=== PATIENT | male | born 1995 | race Caucasian/White ===

== ENCOUNTER 2017-03-19 03:14 | Emergency (ER) | payer BC ==
[2017-03-19] MEDS ORDERED: Ondansetron 4 MG/2 ML SDV IVPUSH ONE (03:46)
[2017-03-19] MEDS ORDERED: Alum Hydrox/Mag Hydrox/Simeth 30 ML, Lidocaine 2% 15 ML PO STA ×2 (03:47)
--- NOTE | 2017-03-19 03:53 | EDM.PDOC ---
ED HPI GENERAL MEDICAL PROBLEM - General Chief Complaint: Abdominal Pain Stated Complaint: STOMACH PAINS Time Seen by Provider: 03/19/17 03:24 Source of Information: Reports: Patient, Old Records, RN Notes Reviewed, Significant Other (Girlfriend) History Limitations: Reports: No Limitations - History of Present Illness INITIAL COMMENTS - FREE TEXT/NARRATIVE: The patient states that he developed epigastric abdominal pain around 14:00 yesterday afternoon. It has been on and off since, but has now been present for about 1.5 hours. He states that it is sharp in character, and is unclear if it radiates. He has nausea and had one episode of emesis last night. No constipation, diarrhea, or urinary symptoms. The patient has not identified any modifiers. He has not tried any home remedies. He denies prior similar symptoms. The patient reports that he has a history of GERD, for which he only takes Tums on an as-needed basis. The patient does not have a PCP. mid gastric Pain Score (Numeric/FACES): 8 - Related Data Allergies Allergy/AdvReac Type Severity Reaction Status Date / Time No Known Allergies Allergy Verified 03/19/17 03:27 Home Meds: Home Meds diphenhydrAMINE HCl [Benadryl Allergy] 25 mg PO ASDIRECTED PRN 03/19/17 [History ] Past Medical History HEENT History: Reports: Allergic Rhinitis Gastrointestinal History: Reports: GERD, Hemorrhoids Genitourinary History: Reports: Renal Calculus Musculoskeletal History: Reports: Fracture (left hand) Psychiatric History: Reports: Addiction (benzodiazepines, opioids), Anxiety, Panic Attack, PTSD Endocrine/Metabolic History: Reports: Obesity/BMI 30+ - Past Surgical History HEENT Surgical History: Reports: Oral Surgery ([place] teeth extraction) Male Surgical History: Reports: Lithotripsy ([facility]), Nephrectomy (left, 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), Other (See Below) (right kidney reconstruction 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) Musculoskeletal Surgical History: Reports: ORIF (left 3rd finger) Social & Family History - Family History Family Medical History: Noncontributory Psychiatric: Reports: Anxiety - Tobacco Use Smoking Status *Q: Never Smoker Second Hand Smoke Exposure: No - Caffeine Use Caffeine Use: Reports: Soda - Alcohol Use Alcohol Use History: No - Recreational Drug Use Recreational Drug Use: Yes Drug Use in Last 12 Months: Yes Recreational Drug Type: Reports: Benzodiazepines, Marijuana/Hashish, Oxycodone Recreational Drug Use Frequency: Daily Recreational Drug Last Use: August 2016 - Living Situation & Occupation Living situation: Reports: Single, with Significant Other (Girlfriend) 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[employer]) ED ROS GENERAL - Review of Systems Review Of Systems: See Below Constitutional: Reports: No Symptoms HEENT: Reports: No Symptoms Respiratory: Reports: No Symptoms Cardiovascular: Reports: No Symptoms Endocrine: Reports: No Symptoms GI/Abdominal: Reports: No Symptoms : Reports: No Symptoms Musculoskeletal: Reports: No Symptoms Skin: Reports: No Symptoms Neurological: Reports: No Symptoms Psychiatric: Reports: No Symptoms Hematologic/Lymphatic: Reports: No Symptoms Immunologic: Reports: No Symptoms ED EXAM, GI/ABD - Physical Exam Exam: See Below Exam Limited By: No Limitations General Appearance: Alert, WD/WN, Anxious (tremulous) Eyes: Bilateral: Normal Appearance, EOMI Ears: Normal External Exam, Hearing Grossly Normal Nose: Normal Inspection, No Blood Throat/Mouth: Normal Inspection, Normal Lips, Normal Voice, No Airway Compromise Head: Atraumatic, Normocephalic Neck: Normal Inspection, Full Range of Motion Respiratory/Chest: No Respiratory Distress, Lungs Clear, Normal Breath Sounds, No Accessory Muscle Use Cardiovascular: Normal Peripheral Pulses, Regular Rate, Rhythm, No Edema, No Gallop, No JVD, No Murmur, No Rub GI/Abdominal Exam: Normal Bowel Sounds, Soft, Non-Tender (including epigastric region), No Organomegaly, No Distention, No Abnormal Bruit, No Mass, Other ( Obese) (Male) Exam: Deferred Back Exam: Normal Inspection, Full Range of Motion. No: CVA Tenderness (L), CVA Tenderness (R) Extremities: Normal Inspection, Normal Range of Motion, No Pedal Edema, Normal Capillary Refill Neurological: Alert, Oriented, Normal Cognition, No Motor/Sensory Deficits Psychiatric: Normal Affect, Anxious Skin Exam: Warm, Dry, Intact, Normal Color, No Rash Course - Vital Signs Last Recorded V/S: Last Vital Signs Temp 37.1 C 03/19/17 03:20 Pulse 104 H 03/19/17 03:20 Resp 18 03/19/17 03:20 BP 154/84 H 03/19/17 03:20 Pulse Ox 98 03/19/17 03:20 - Orders/Labs/Meds Orders: Active Orders 24 hr Category Date Time Status Famotidine [Pepcid] Med 03/19/17 05:08 Once 20 mg PO ONETIME ONE Sodium Chloride 0.9% [Normal Saline] 1,000 ml Med 03/19/17 04:00 Active IV ASDIRECTED Medication Orders Sodium Chloride (Normal Saline) 1,000 mls @ 150 mls/hr IV ASDIRECTED MICHAEL Last Admin: 03/19/17 04:09 Dose: 150 mls/hr Labs: Laboratory Tests 03/19/17 03/19/17 03/19/17 Range/Units 04:05 04:05 04:05 WBC 11.99 H (4.23-9.07) K/mm3 RBC 5.43 (4.63-6.08) M/mm3 Hgb 14.7 (13.7-17.5) gm/L Hct 43.8 (40.1-51.0) % MCV 80.7 (79.0-92.2) fl MCH 27.1 (25.7-32.2) pg MCHC 33.6 (32.2-35.5) g/dl RDW Std Deviation 39.9 (35.1-43.9) fL Plt Count 212 (163-337) K/mm3 MPV 11.3 (9.4-12.3) fl Neutrophils % (Manual) 51 (40-60) % Band Neutrophils % 1 (0-10) % Lymphocytes % (Manual) 27 (20-40) % Atypical Lymphs % 0 % Monocytes % (Manual) 4 (2-10) % Eosinophils % (Manual) 16 H (0.8-7.0) % Basophils % (Manual) 1 (0.2-1.2) Platelet Estimate Adequate Plt Morphology Comment Normal Anisocytosis 1+ sligh RBC Morph Comment Not Reportable Sodium 140 (136-145) mEq/L Potassium 3.4 L (3.5-5.1) mEq/L Chloride 102 (98-107) mEq/L Carbon Dioxide 30 (21-32) mEq/L Anion Gap 11.4 (5-15) BUN 11 (7-18) mg/dL Creatinine 1.3 (0.7-1.3) mg/dL Est Cr Clr Drug Dosing 93.59 mL/min Estimated GFR (MDRD) > 60 (>60) mL/min BUN/Creatinine Ratio 8.5 L (14-18) Glucose 131 H (74-106) mg/dL Calcium 9.7 (8.5-10.1) mg/dL Total Bilirubin 0.3 (0.2-1.0) mg/dL AST 37 (15-37) U/L ALT 42 (16-63) U/L Alkaline Phosphatase 85 (46-116) U/L Total Protein 8.1 (6.4-8.2) g/dl Albumin 4.1 (3.4-5.0) g/dl Globulin 4.0 gm/dL Albumin/Globulin Ratio 1.0 (1-2) Lipase 66 L (73-393) U/L Urine Color Yellow (Yellow) Urine Appearance Clear (Clear) Urine pH 7.0 (5.0-8.0) Ur Specific Arthur 1.025 (1.005-1.030) Urine Protein 2+ H (Negative) Urine Glucose (UA) Negative (Negative) Urine Ketones Negative (Negative) Urine Occult Blood Negative (Negative) Urine Nitrite Negative (Negative) Urine Bilirubin Negative (Negative) Urine Urobilinogen 0.2 (0.2-1.0) Ur Leukocyte Esterase Negative (Negative) Urine RBC 0-5 (0-5) /hpf Urine WBC 0-5 (0-5) /hpf Ur Epithelial Cells 0-5 (0-5) /hpf Amorphous Sediment Few H (NOT SEEN) /hpf Urine Bacteria Rare (FEW) /hpf Urine Mucus Not seen (FEW) /hpf Urine Opiates Screen (NEGATIVE) Ur Buprenorphine Scrn (NEGATIVE) Ur Oxycodone Screen (NEGATIVE) Urine Methadone Screen (NEGATIVE) Ur Propoxyphene Screen (NEGATIVE) Ur Barbiturates Screen (NEGATIVE) Ur Tricyclics Screen (NEGATIVE) Ur Phencyclidine Scrn (NEGATIVE) Ur Amphetamine Screen (NEGATIVE) U Methamphetamines Scrn (NEGATIVE) U Benzodiazepines Scrn (NEGATIVE) U Cocaine Metab Screen (NEGATIVE) U Marijuana (THC) Screen (NEGATIVE) 03/19/17 Range/Units 04:05 WBC (4.23-9.07) K/mm3 RBC (4.63-6.08) M/mm3 Hgb (13.7-17.5) gm/L Hct (40.1-51.0) % MCV (79.0-92.2) fl MCH (25.7-32.2) pg MCHC (32.2-35.5) g/dl RDW Std Deviation (35.1-43.9) fL Plt Count (163-337) K/mm3 MPV (9.4-12.3) fl Neutrophils % (Manual) (40-60) % Band Neutrophils % (0-10) % Lymphocytes % (Manual) (20-40) % Atypical Lymphs % % Monocytes % (Manual) (2-10) % Eosinophils % (Manual) (0.8-7.0) % Basophils % (Manual) (0.2-1.2) Platelet Estimate Plt Morphology Comment Anisocytosis RBC Morph Comment Sodium (136-145) mEq/L Potassium (3.5-5.1) mEq/L Chloride (98-107) mEq/L Carbon Dioxide (21-32) mEq/L Anion Gap (5-15) BUN (7-18) mg/dL Creatinine (0.7-1.3) mg/dL Est Cr Clr Drug Dosing mL/min Estimated GFR (MDRD) (>60) mL/min BUN/Creatinine Ratio (14-18) Glucose (74-106) mg/dL Calcium (8.5-10.1) mg/dL Total Bilirubin (0.2-1.0) mg/dL AST (15-37) U/L ALT (16-63) U/L Alkaline Phosphatase (46-116) U/L Total Protein (6.4-8.2) g/dl Albumin (3.4-5.0) g/dl Globulin gm/dL Albumin/Globulin Ratio (1-2) Lipase (73-393) U/L Urine Color (Yellow) Urine Appearance (Clear) Urine pH (5.0-8.0) Ur Specific Arthur (1.005-1.030) Urine Protein (Negative) Urine Glucose (UA) (Negative) Urine Ketones (Negative) Urine Occult Blood (Negative) Urine Nitrite (Negative) Urine Bilirubin (Negative) Urine Urobilinogen (0.2-1.0) Ur Leukocyte Esterase (Negative) Urine RBC (0-5) /hpf Urine WBC (0-5) /hpf Ur Epithelial Cells (0-5) /hpf Amorphous Sediment (NOT SEEN) /hpf Urine Bacteria (FEW) /hpf Urine Mucus (FEW) /hpf Urine Opiates Screen Negative (NEGATIVE) Ur Buprenorphine Scrn Negative (NEGATIVE) Ur Oxycodone Screen Negative (NEGATIVE) Urine Methadone Screen Negative (NEGATIVE) Ur Propoxyphene Screen Negative (NEGATIVE) Ur Barbiturates Screen Negative (NEGATIVE) Ur Tricyclics Screen Negative (NEGATIVE) Ur Phencyclidine Scrn Negative (NEGATIVE) Ur Amphetamine Screen Negative (NEGATIVE) U Methamphetamines Scrn Negative (NEGATIVE) U Benzodiazepines Scrn Negative (NEGATIVE) U Cocaine Metab Screen Negative (NEGATIVE) U Marijuana (THC) Screen Negative (NEGATIVE) Meds: Medications Generic Name Dose Route Start Last Admin Trade Name Freq PRN Reason Stop Dose Admin Sodium Chloride 1,000 mls @ 150 mls/hr 03/19/17 04:00 03/19/17 04:09 Normal Saline IV 150 mls/hr ASDIRECTED MICHAEL Administration Discontinued Medications Generic Name Dose Route Start Last Admin Trade Name Freq PRN Reason Stop Dose Admin Al Hydroxide/Mg Hydroxide 30 0 ml 03/19/17 03:47 03/19/17 04:09 ml/ Lidocaine HCl 15 ml PO 03/19/17 03:48 45 ml ONETIME STA Administration Ondansetron HCl 4 mg 03/19/17 03:46 03/19/17 04:09 Zofran IVPUSH 03/19/17 03:47 4 mg ONETIME ONE Administration - Re-Assessments/Exams Free Text/Narrative Re-Assessment/Exam: 03/19/17 03:57 While the patient is complaining of epigastric abdominal pain, he has a benign physical exam, with normal active bowel sounds and no tenderness to palpation of the epigastric region. Based on this, I have not ordered a CT scan of the abdomen and pelvis, given the extremely low likelihood of meaningful findings and the relative risk of radiation. If the patient's lipase returns significantly elevated, however, I would reconsider ordering an imaging study. I have ordered a GI cocktail, to see if that improves his symptoms. The patient has a well-documented significant history of both benzodiazepine and opioid abuse, which he was reluctant to divulge, even though I have personally met this patient on 2 separate occasions. I am not going to order any controlled substances unless I find an objective reason to do so. 03/19/17 05:09 Test results discussed with the patient and his girlfriend. The patient reports complete relief following the GI cocktail. This indicates that the patient's pain is due either to gastritis, GERD, esophagitis, or some combination. I have ordered 20 mg famotidine, and am recommending that he begin taking this once or twice a day. Departure - Departure Time of Disposition: 05:11 Disposition: Home, Self-Care 01 Condition: Good Clinical Impression: GERD (gastroesophageal reflux disease) - Discharge Information Referrals: PCP,None [Primary Care Provider] - Forms: ED Department Discharge Additional Instructions: You were seen in the emergency room for upper abdominal pain, with nausea and vomiting. Workup in the ER included blood work and urinalyses. You received significant improvement after drinking a GI cocktail, indicating that your pain is coming from it to your stomach or your esophagus. You have been started on the antacid medicine Pepcid. This medicine is available [id number], and generic famotidine is just as good as brand- name Pepcid. We recommend you take one tablet either once or twice a day. If your symptoms persist despite taking this medicine, we recommend you follow- up with the Surgeon Dr. Santacruz for possible EGD. If any other problems, please do not hesitate to return to the ER. - My Orders Last 24 Hours: My Active Orders 03/19/17 04:00 Sodium Chloride 0.9% [Normal Saline] 1,000 ml IV ASDIRECTED 03/19/17 05:08 Famotidine [Pepcid] 20 mg PO ONETIME ONE - Assessment/Plan Last 24 Hours: My Active Orders 03/19/17 04:00 Sodium Chloride 0.9% [Normal Saline] 1,000 ml IV ASDIRECTED 03/19/17 05:08 Famotidine [Pepcid] 20 mg PO ONETIME ONE
[2017-03-19] MEDS ORDERED: Sodium Chloride 0.9% 1,000 ML IV SCH (04:00)
[2017-03-19] MEDS ORDERED: Famotidine 20 MG Tab PO ONE (05:08)
[2017-03-19 05:33] VITALS: BP 140/74
== END 2017-03-19 05:20 | disposition home or self-care (01) ==
LOC: JD.ED 03:14
DX: K21.9 Gastro-esophageal reflux disease without esophagitis (principal); Z87.442 Personal history of urinary calculi
CPT/HCPCS: 36415; 80053; 80306; 81001; 83690; 85025; 96361; 96374; 99284; A9270; J2405; J7040; 99283

== ENCOUNTER 2017-03-21 04:08 | Emergency (ER) | payer BC ==
[2017-03-21 04:19] VITALS: BP 132/80
[2017-03-21] MEDS ORDERED: Metoclopramide 10 MG/2 ML SDV IVPUSH ONE (04:31)
[2017-03-21] MEDS ORDERED: HYDROmorphone 1 MG/ML Syringe IVPUSH ONE (04:31)
--- NOTE | 2017-03-21 04:31 | EDM.PDOC ---
ED HPI GENERAL MEDICAL PROBLEM - General Chief Complaint: Abdominal Pain Stated Complaint: ABDOMINAL PAIN Time Seen by Provider: 03/21/17 04:23 Source of Information: Reports: Patient History Limitations: Reports: No Limitations - History of Present Illness INITIAL COMMENTS - FREE TEXT/NARRATIVE: 21-year-old male presents to the ED with diffuse abdominal pain worse in the right lower quadrant than anywhere else. He reports he started vomiting of 3 days ago and then it seemed to quit. He had upper GI discomfort and was seen through the ED 906. Improved with an upper GI cocktail. States since that time his bowels been functioning well yesterday he can eat okay. No fever or chills. Has not been able to sleep all night due to the intensity of the pain. There appears to be a strong colicky component to the pain. 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 He has no history of renal stones. At present he cannot stand erect. Not aware of any fever or chills. Is anorexic at this time. He's been taking Motrin at home with no relief of the pain. Has not seen any blood in his urine. Stools have been normal. Onset: Sudden Onset Date: 03/20/17 Duration: Hour(s): (Pain started yesterday afternoon and is progressively worsened.) Location: Reports: Abdomen (Right lower quadrant.) Quality: Reports: Ache, Sharp, Stabbing, Other (Constant pain with a colicky component) Severity: Severe (Currently rates his pain as 8 out of 10.) Improves with: Reports: Rest Worsens with: Reports: Movement (Especially standing erect.) Context: Denies: Activity, Exercise, Lifting, Sick Contact, Trauma, Other Associated Symptoms: Reports: Loss of Appetite, Nausea/Vomiting. 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, Other (see below) Right Lower Abdominal Pain Score (Numeric/FACES): 8 - Related Data Allergies Allergy/AdvReac Type Severity Reaction Status Date / Time No Known Allergies Allergy Verified 03/21/17 04:19 Home Meds: Home Meds diphenhydrAMINE HCl [Benadryl Allergy] 25 mg PO ASDIRECTED PRN 03/19/17 [History ] Past Medical History HEENT History: Reports: Allergic Rhinitis Gastrointestinal History: Reports: GERD, Hemorrhoids Other Gastrointestinal History: hx constipation and abdominal pain Genitourinary History: Reports: Renal Calculus Other Genitourinary History: 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 Musculoskeletal History: Reports: Fracture (left hand) Other Musculoskeletal History: left hand Neurological History: Reports: Migraines Psychiatric History: Reports: Addiction (benzodiazepines, opioids), Anxiety, Panic Attack, PTSD Endocrine/Metabolic History: Reports: Obesity/BMI 30+ - Past Surgical History HEENT Surgical History: Reports: Oral Surgery ([place] teeth extraction) Male Surgical History: Reports: Lithotripsy ([facility]), Nephrectomy (left, 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), Other (See Below) (right kidney reconstruction 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) Musculoskeletal Surgical History: Reports: ORIF (left 3rd finger) Social & Family History - Family History Family Medical History: Noncontributory Psychiatric: Reports: Anxiety - Tobacco Use Smoking Status *Q: Never Smoker Second Hand Smoke Exposure: No - Caffeine Use Caffeine Use: Reports: Soda - Recreational Drug Use Recreational Drug Use: Yes Drug Use in Last 12 Months: Yes Recreational Drug Type: Reports: Benzodiazepines, Marijuana/Hashish, Oxycodone Other Recreational Drug Type: denies any use of street drugs Recreational Drug Use Frequency: Daily Recreational Drug Last Use: August 2016 - Living Situation & Occupation Living situation: Reports: Single, with Significant Other (Girlfriend) 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 Denies: Fever HEENT: Reports: No Symptoms Respiratory: Reports: No Symptoms Cardiovascular: Reports: No Symptoms Endocrine: Reports: No Symptoms GI/Abdominal: Reports: Abdominal Pain, Anorexia (See history of present illness) , Nausea. Denies: Constipation, Diarrhea, Distension, Flatus, Hematemesis, Hematochezia, Stool Incontinence, Vomiting, Other : Reports: No Symptoms Musculoskeletal: Reports: No Symptoms Skin: Reports: No Symptoms Neurological: Reports: No Symptoms Psychiatric: Reports: No Symptoms Hematologic/Lymphatic: Reports: No Symptoms Immunologic: Reports: No Symptoms ED EXAM, GI/ABD - Physical Exam Exam: See Below Exam Limited By: No Limitations General Appearance: Alert, Moderate Distress (Appears to be in significant pain at this time.) Eyes: Bilateral: Normal Appearance (No jaundice.) Throat/Mouth: Normal Inspection, Normal Lips, Normal Oropharynx Head: Atraumatic, Normocephalic Neck: Normal Inspection, Supple, Non-Tender, Full Range of Motion. No: Lymphadenopathy (L), Lymphadenopathy (R) Respiratory/Chest: No Respiratory Distress, Lungs Clear, Normal Breath Sounds ( Mild tachypnea at rest. Splinting respirations.), No Accessory Muscle Use, Respiratory Distress GI/Abdominal Exam: Guarding, Rebound, Tender (Right lower quadrant over McBurney 's point and a little bit lower.), Abnormal Bowel Sounds (Decreased bowel sounds.). No: Rigid (Right hemiabdomen particularly right lower quadrant.) (Male) Exam: No Hernia Back Exam: Normal Inspection, Full Range of Motion, CVA Tenderness (R). No: CVA Tenderness (L) Extremities: Normal Inspection, Normal Range of Motion, Non-Tender Neurological: Alert, Oriented, CN II-XII Intact, Normal Cognition, Normal Gait Psychiatric: Normal Affect, Anxious, Other Skin Exam: Warm, Dry (In a lot of pain.), Intact, Normal Color, No Rash Course - Vital Signs Last Recorded V/S: Last Vital Signs Temp 36.6 C 03/21/17 04:16 Pulse 89 03/21/17 04:16 Resp 16 03/21/17 04:16 BP 132/80 03/21/17 04:16 Pulse Ox 100 03/21/17 04:16 - Orders/Labs/Meds Labs: Laboratory Tests 03/21/17 03/21/17 03/21/17 Range/Units 04:40 04:40 06:25 WBC 12.85 H (4.23-9.07) K/mm3 RBC 5.37 (4.63-6.08) M/mm3 Hgb 14.6 (13.7-17.5) gm/L Hct 43.5 (40.1-51.0) % MCV 81.0 (79.0-92.2) fl MCH 27.2 (25.7-32.2) pg MCHC 33.6 (32.2-35.5) g/dl RDW Std Deviation 40.3 (35.1-43.9) fL Plt Count 233 (163-337) K/mm3 MPV 11.4 (9.4-12.3) fl Neutrophils % (Manual) 48 (40-60) % Band Neutrophils % 1 (0-10) % Lymphocytes % (Manual) 30 (20-40) % Atypical Lymphs % 0 % Monocytes % (Manual) 7 (2-10) % Eosinophils % (Manual) 14 H (0.8-7.0) % Basophils % (Manual) 0 L (0.2-1.2) Platelet Estimate Adequate RBC Morph Comment Normal Sodium 140 (136-145) mEq/L Potassium 3.5 (3.5-5.1) mEq/L Chloride 104 (98-107) mEq/L Carbon Dioxide 27 (21-32) mEq/L Anion Gap 12.5 (5-15) BUN 8 (7-18) mg/dL Creatinine 1.3 (0.7-1.3) mg/dL Est Cr Clr Drug Dosing TNP Estimated GFR (MDRD) > 60 (>60) mL/min BUN/Creatinine Ratio 6.2 L (14-18) Glucose 113 H (74-106) mg/dL Calcium 9.1 (8.5-10.1) mg/dL Total Bilirubin 0.3 (0.2-1.0) mg/dL AST 31 (15-37) U/L ALT 37 (16-63) U/L Alkaline Phosphatase 85 (46-116) U/L C-Reactive Protein < 0.2 (<1.0) mg/dL Total Protein 7.8 (6.4-8.2) g/dl Albumin 4.1 (3.4-5.0) g/dl Globulin 3.7 gm/dL Albumin/Globulin Ratio 1.1 (1-2) Lipase 66 L (73-393) U/L Urine Color Yellow (Yellow) Urine Appearance Clear (Clear) Urine pH 6.0 (5.0-8.0) Ur Specific [place] 1.025 (1.005-1.030) Urine Protein 1+ H (Negative) Urine Glucose (UA) Negative (Negative) Urine Ketones Negative (Negative) Urine Occult Blood Negative (Negative) Urine Nitrite Negative (Negative) Urine Bilirubin Negative (Negative) Urine Urobilinogen 0.2 (0.2-1.0) Ur Leukocyte Esterase Negative (Negative) Urine RBC 0-5 (0-5) /hpf Urine WBC 0-5 (0-5) /hpf Ur Epithelial Cells Not seen (0-5) /hpf Calcium Oxalate Crystal Few H (NONE) Urine Bacteria Not seen (FEW) /hpf Urine Mucus Few (FEW) /hpf Meds: Medications Discontinued Medications Generic Name Dose Route Start Last Admin Trade Name Freq PRN Reason Stop Dose Admin Diatrizoate Meglum/Diatrizoate Sod 90 ml 03/21/17 06:23 03/21/17 06:34 Gastrografin 37% PO 03/21/17 06:24 90 ml ONETIME ONE Administration Dicyclomine HCl 20 mg 03/21/17 06:49 03/21/17 06:55 Bentyl PO 03/21/17 06:50 20 mg ONETIME ONE Administration Hydromorphone HCl 1 mg 03/21/17 04:31 03/21/17 04:55 Dilaudid IVPUSH 03/21/17 04:32 1 mg ONETIME ONE Administration Hydromorphone HCl 0.5 mg 03/21/17 06:49 03/21/17 06:55 Dilaudid IVPUSH 03/21/17 06:50 0.5 mg ONETIME ONE Administration Sodium Chloride 1,000 mls @ 500 mls/hr 03/21/17 04:45 03/21/17 04:52 Normal Saline IV 500 mls/hr ASDIRECTED MICHAEL Administration Iopamidol 125 ml 03/21/17 06:23 03/21/17 06:35 Isovue-300 (61%) IVPUSH 03/21/17 06:24 125 ml ONETIME ONE Administration Ketorolac Tromethamine 30 mg 03/21/17 07:00 03/21/17 06:59 Toradol IVPUSH 30 mg ONETIME MICHAEL Administration Metoclopramide HCl 10 mg 03/21/17 04:31 03/21/17 04:54 Reglan IVPUSH 03/21/17 04:32 10 mg ONETIME ONE Administration Sodium Chloride 10 ml 03/21/17 06:23 03/21/17 06:35 Saline Flush FLUSH 03/21/17 06:24 10 ml ONETIME ONE Administration - Radiology Interpretation Free Text/Narrative:: 21-year-old male presents to the ED with a history of spontaneous nausea and vomiting 3 days ago upper GI discomfort and was seen through the ED on the seventh. He was able to eat up until yesterday when he developed increasing lower abdominal pain and particularly right lower quadrant abdominal pain over the last several hours. Walk and he cannot stand erect. Pain is strongly colicky in nature. 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 History of renal colic that he's aware of. Examination reveals few and far between bowel sounds. Slightly tender to percussion right lower quadrant and guarding right lower quadrant over McBurney' s point. No hernias identified. He is afebrile at this time. Plan IV normal saline at 500 mils per hour. Given Dilaudid 1 mg IV with Reglan 10 mg IV for pain and nausea relief. Routine labs including a serum lipase and CRP. Urinalysis as well. KUB will be done first with plan to follow-up with CT scan of the abdomen and pelvis with oral and IV contrast providing his one kidney is functioning well. - Re-Assessments/Exams Free Text/Narrative Re-Assessment/Exam: 03/21/17 05:14 patient reports pain is much more manageable at this time after Dilaudid and Reglan IV. KUB done reveals increased stool in the lower right hemicolon with a few dilated loops of small bowel in the right lower quadrant compatible with an ileus. There is increased stool throughout the left hemicolon down to the rectum. No bowel obstruction is evident. Initial white count is 12.85 differential is pending. Hemoglobin is 14.6 with a hematocrit .HCT. is 43.5 ,platelets 233,000. Plan Will proceed with CT of the abdomen and pelvis with oral and IV contrast. 03/21/17 05:58 labs reveal differential of white count to be 48% neutrophils and 1% bands. She shows a sodium of 140 potassium 3.5 chloride 104 bicarbonate 27. Anion gap is 12.5 glucose is 113 lipase is 66 CRP is less than 0.2. These findings are against acute appendicitis. He will be 4 CT of the abdomen and pelvis shortly. 03/21/17 06:50 CT of the abdomen and pelvis has been completed. A large amount of contrast remains within the stomach. Contrast does percolate through the small bowel which contains a large amount of fluid particularly down in the pelvis. Heart no true signs of air-fluid levels or obstruction. There is increased stool throughout the right hemicolon and transverse colon. The appendix is not well visualized but there is no signs of periappendiceal inflammation. Left kidney is absent right kidney is slightly enlarged compared to normal with a slightly dilated renal pelvis. However there is no obstruction in the right ureter. It appears that most of his abdominal pain is secondary to increased stool throughout the right hemicolon and he is going to develop some diarrhea within the next few hours. Pain is coming back and he is rocking back and forth because of the cramping. Will repeat Dilaudid 0.5 mg IV with Toradol 30 mg IV and given Bentyl 20 mg orally. I will not add any other medications to system to cleanse the bowel is I think the contrast will be enough to do so. He will return if not markedly improved after bowel cleanse from the oral contrast. Departure - Departure Time of Disposition: 06:52 Disposition: Home, Self-Care 01 Condition: Fair Clinical Impression: Constipation by delayed colonic transit Abdominal pain Qualifiers: Abdominal location: right lower quadrant Qualified Code(s): R10.31 - Right lower quadrant pain - Discharge Information Instructions: Constipation, Adult, Abdominal Pain, Adult, [id number] Referrals: PCP,None [Primary Care Provider] - Forms: ED Department Discharge Additional Instructions: Evaluation the emergency room tonight in regards to persistent abdominal cramping pain that kept her awake all night long. This started 3 days ago with spontaneous nausea and vomiting. No diarrhea did occur at that time. Appetite remains good up until yesterday. Overnight developed increased abdominal cramping pain without any diarrhea. Pain was more localized to the right lower quadrant of the abdomen. Also history of left kidney being resected when you were a youngster with reanastomosis of the ureters to the right kidney due to congenital abnormalities. Lab work revealed a moderately elevated white blood cell count at 12.9. This appears to be secondary to pain response. The normal cells that fight of bacterial infection were normal. Also markers for infection from bacteria infection were normal as well. CT scan of the abdomen is performed to rule out appendicitis as well as any stones within the right kidney system as this would be very important due to only having one kidney. The good news is no stones are identified within the right kidney or the drainage system. Appendix is within normal limits. No sign of appendicitis evident. Increased stool without them in within the right hemicolon and transverse colon appear to be the culprit in terms of causing a plug. Small bowel is 21 feet long trying to push the plug to the opposite side thus giving you the abdominal pain. The oral contrast that you drink in preparation for the CT will work its way through your bowel and you will have at least 2 bowel movements within the next 4-6 hours. This should provide relief of abdominal pain once the bowel is been cleansed of the cuspid stool. If not then I would suggest purchasing Citroma or magnesium citrate and drink 8 ounces by mouth with 4 ounces of juice of choice once. This usually works up in 1-2 hours to provide bowel cleanse.
[2017-03-21] MEDS ORDERED: Sodium Chloride 0.9% 1,000 ML IV SCH (04:45)
[2017-03-21] MEDS ORDERED: Sodium Chloride 0.9% 10 ML Syringe FLUSH ONE (06:23)
[2017-03-21] MEDS ORDERED: Iopamidol 612 MG/ML 150 ML Bottle IVPUSH ONE (06:23)
[2017-03-21] MEDS ORDERED: Diatrizoate Meglumine/Diatrizoate Sodium 37% 120 ML Bottle PO ONE (06:23)
[2017-03-21] MEDS ORDERED: HYDROmorphone 0.5 MG/0.5 ML Syringe IVPUSH ONE (06:49)
[2017-03-21] MEDS ORDERED: Dicyclomine 10 MG Cap PO ONE (06:49)
[2017-03-21] MEDS ORDERED: Ketorolac 30 MG/ML SDV IVPUSH SCH (07:00)
--- NOTE | 2017-03-23 08:58 | CT ---
CT abdomen and pelvis Technique: Multiple axial sections were obtained from above the dome of the diaphragm inferiorly through the pubic symphysis. Intravenous and oral contrast was utilized. Delayed images were obtained through the bladder. Comparison: Previous noncontrast CT abdomen and pelvis exam of 08/07/16. Findings: Visualized lung bases show nothing acute. Liver shows no focal parenchymal abnormality. Spleen appears within normal limits. Adrenal glands show no nodule. Absent left kidney is again identified. Right kidney shows contrast enhancement. Slightly prominent collecting system and renal pelvis are seen which is felt to be incidental as no ureteral dilatation or ureteral calculus is seen. Pancreas appears within normal limits. Aorta shows no aneurysmal dilatation. No retroperitoneal adenopathy or mesenteric abnormalities are seen. No findings of appendicitis. Small amount of free fluid is seen within the pelvis believed to be incidental. No pelvic mass or adenopathy is noted. Slight increased stool within the colon is seen. Delayed images were obtained which show contrast excretion into the distal right ureter and bladder. Bone window settings were reviewed which show disc bulge or herniation at T11-T12 as well as diffuse posterior disc bulge or protrusion at L4-L5. Impression: 1. Absent left kidney. 2. Other incidental findings. Nothing acute is appreciated on CT study of the abdomen and pelvis. Diagnostic code #2 I agree with preliminary report issued by [employer] ([facility] preliminary report dictated on 03/21/17, 8:16 AM Central Time)
--- NOTE | 2017-03-23 08:58 | CR ---
Abdomen: Supine view of the abdomen was obtained. Bowel gas pattern appears within normal limits. No abnormal calcifications or discrete soft tissue abnormality is seen. Bony structures are unremarkable. Impression: 1. Unremarkable supine abdominal x-ray. Diagnostic code #1
== END 2017-03-21 07:19 | disposition home or self-care (01) ==
LOC: JD.ED 04:08
DX: K59.01 Slow transit constipation (principal); K21.9 Gastro-esophageal reflux disease without esophagitis; E66.9 Obesity, unspecified; Z87.442 Personal history of urinary calculi; Z98.890 Other specified postprocedural states
CPT/HCPCS: 36415; 74000; 74177; 80053; 81001; 83690; 85025; 86140; 96361; 96374; 96375; 96376; 99285; A9270; J1170; J1885; J2765; J7040; J7050; Q9963; Q9967; 99284

== ENCOUNTER 2018-04-18 02:18 | Emergency (ER) | payer BC ==
--- NOTE | 2018-04-18 02:41 | EDM.PDOC ---
ED HPI GENERAL MEDICAL PROBLEM - General Chief Complaint: Neurological Problem Stated Complaint: seizure at home Time Seen by Provider: 04/18/18 02:41 - History of Present Illness INITIAL COMMENTS - FREE TEXT/NARRATIVE: 22-year-old male presents emergency room after possibly having a seizure. According to the patient's significant other who states the patient was just sitting there that his head turned to the side his eyes rolled back and then he developed this generalized shaking activity that lasted 20-30 seconds. After this he started mumbling about football and rain and then woke up. He's been using this sleep aid that he gets online but had not yet taken it this evening. The name of this is Etizalam. This is a very weak benzodiazepine. He has been taking this sleep aid for a couple of months. - Related Data Allergies Allergy/AdvReac Type Severity Reaction Status Date / Time No Known Allergies Allergy Verified 04/18/18 02:26 Home Meds: Home Meds Etizolam. 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 Musculoskeletal History: Reports: Fracture Other Musculoskeletal History: left hand Neurological History: Reports: Migraines Psychiatric History: Reports: Addiction, Anxiety, Panic Attack, PTSD Endocrine/Metabolic History: Reports: Obesity/BMI 30+ - Past Surgical History HEENT Surgical History: Reports: Oral Surgery Male Surgical History: Reports: Lithotripsy (ESWL), Nephrectomy, Other (See Below) Musculoskeletal Surgical History: Reports: ORIF Social & Family History - Family History Family Medical History: Noncontributory Psychiatric: Reports: Anxiety - Tobacco Use Smoking Status *Q: Never Smoker - Caffeine Use Caffeine Use: Reports: Energy Drinks - Recreational Drug Use Recreational Drug Use: No - Living Situation & Occupation Living situation: Reports: Single, with Significant Other (Girlfriend) 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[employer]) ED ROS GENERAL - Review of Systems Review Of Systems: See Below Constitutional: Reports: No Symptoms HEENT: Reports: No Symptoms Respiratory: Reports: No Symptoms Cardiovascular: Reports: No Symptoms Endocrine: Reports: No Symptoms GI/Abdominal: Reports: No Symptoms : Reports: No Symptoms Musculoskeletal: Reports: No Symptoms Skin: Reports: No Symptoms Neurological: Reports: No Symptoms Psychiatric: Reports: No Symptoms Hematologic/Lymphatic: Reports: No Symptoms Immunologic: Reports: No Symptoms - Physical Exam Exam: See Below Exam Limited By: No Limitations General Appearance: Alert, No Apparent Distress Eye Exam: Bilateral Eye: EOMI, PERRL Ears: Normal External Exam, Normal Canal, Hearing Grossly Normal, Normal TMs Nose: Normal Inspection Throat/Mouth: Normal Inspection, Normal Lips, Normal Teeth, Normal Gums, Normal Oropharynx, Normal Voice, No Airway Compromise Head Exam: Atraumatic, Normocephalic Neck: Normal Inspection, Supple, Non-Tender, Full Range of Motion. No: Lymphadenopathy (L), Lymphadenopathy (R) Respiratory/Chest: No Respiratory Distress, Lungs Clear, Normal Breath Sounds, No Accessory Muscle Use, Chest Non-Tender Cardiovascular: Normal Peripheral Pulses, Regular Rate, Rhythm, No Edema, No Gallop, No JVD, No Murmur, No Rub GI/Abdominal: Normal Bowel Sounds, Soft, Non-Tender, No Organomegaly, No Distention, No Abnormal Bruit, No Mass Neuro Exam (Abbreviated): Alert, Oriented, CN II-XII Intact, Normal Cognition, Normal Gait, Normal Reflexes, No Motor/Sensory Deficits, Other (Cerebellar testing is normal) Course - Vital Signs Last Recorded V/S: Last Vital Signs Temp 37.4 C 04/18/18 02:23 Pulse 107 H 04/18/18 04:26 Resp 16 04/18/18 04:26 BP 123/54 L 04/18/18 04:26 Pulse Ox 98 04/18/18 04:26 - Orders/Labs/Meds Orders: Active Orders 24 hr Category Date Time Status EKG Documentation Completion [RC] STAT Care 04/18/18 03:07 Active Head wo Cont [CT] Stat Exams 04/18/18 04:46 Taken Labs: Laboratory Tests 04/18/18 04/18/18 04/18/18 Range/Units 03:00 03:00 04:02 WBC 7.72 (4.23-9.07) K/mm3 RBC 5.37 (4.63-6.08) M/mm3 Hgb 13.9 (13.7-17.5) gm/L Hct 41.7 (40.1-51.0) % MCV 77.7 L (79.0-92.2) fl MCH 25.9 (25.7-32.2) pg MCHC 33.3 (32.2-35.5) g/dl RDW Std Deviation 39.1 (35.1-43.9) fL Plt Count 222 (163-337) K/mm3 MPV 11.6 (9.4-12.3) fl Neutrophils % (Manual) 63 H (40-60) % Band Neutrophils % 0 (0-10) % Lymphocytes % (Manual) 26 (20-40) % Atypical Lymphs % 5 % Monocytes % (Manual) 6 (2-10) % Eosinophils % (Manual) 0 L (0.8-7.0) % Basophils % (Manual) 0 L (0.2-1.2) Platelet Estimate Adequate Plt Morphology Comment Normal RBC Morph Comment Normal Sodium 137 (136-145) mEq/L Potassium 3.4 L (3.5-5.1) mEq/L Chloride 102 (98-107) mEq/L Carbon Dioxide 25 (21-32) mEq/L Anion Gap 13.4 (5-15) BUN 12 (7-18) mg/dL Creatinine 1.2 (0.7-1.3) mg/dL Est Cr Clr Drug Dosing 100.54 mL/min Estimated GFR (MDRD) > 60 (>60) mL/min BUN/Creatinine Ratio 10.0 L (14-18) Glucose 121 H (74-106) mg/dL Calcium 9.0 (8.5-10.1) mg/dL Total Bilirubin 0.4 (0.2-1.0) mg/dL AST 35 (15-37) U/L ALT 29 (16-63) U/L Alkaline Phosphatase 90 (46-116) U/L Total Protein 8.1 (6.4-8.2) g/dl Albumin 4.2 (3.4-5.0) g/dl Globulin 3.9 gm/dL Albumin/Globulin Ratio 1.1 (1-2) Urine Color Yellow (Yellow) Urine Appearance Clear (Clear) Urine pH 6.0 (5.0-8.0) Ur Specific [place] > or = 1.030 (1.005-1.030) Urine Protein 1+ H (Negative) Urine Glucose (UA) Negative (Negative) Urine Ketones Trace H (Negative) Urine Occult Blood Trace-intact H (Negative) Urine Nitrite Negative (Negative) Urine Bilirubin Negative (Negative) Urine Urobilinogen 0.2 (0.2-1.0) Ur Leukocyte Esterase Negative (Negative) Urine RBC 0-5 (0-5) /hpf Urine WBC 0-5 (0-5) /hpf Ur Epithelial Cells Not seen (0-5) /hpf Calcium Oxalate Crystal Few H (NONE) Urine Bacteria Not seen (FEW) /hpf Hyaline Casts 0-5 (0-5) /lpf Fine Granular Casts 0-5 (0-5) /lpf Urine Mucus Many H (FEW) /hpf Urine Opiates Screen (NEGATIVE) Ur Buprenorphine Scrn (NEGATIVE) Ur Oxycodone Screen (NEGATIVE) Urine Methadone Screen (NEGATIVE) Ur Propoxyphene Screen (NEGATIVE) Ur Barbiturates Screen (NEGATIVE) Ur Tricyclics Screen (NEGATIVE) Ur Phencyclidine Scrn (NEGATIVE) Ur Amphetamine Screen (NEGATIVE) U Methamphetamines Scrn (NEGATIVE) U Benzodiazepines Scrn (NEGATIVE) U Cocaine Metab Screen (NEGATIVE) U Marijuana (THC) Screen (NEGATIVE) Ethyl Alcohol 0.00 (0.00) gm% 04/18/18 Range/Units 04:02 WBC (4.23-9.07) K/mm3 RBC (4.63-6.08) M/mm3 Hgb (13.7-17.5) gm/L Hct (40.1-51.0) % MCV (79.0-92.2) fl MCH (25.7-32.2) pg MCHC (32.2-35.5) g/dl RDW Std Deviation (35.1-43.9) fL Plt Count (163-337) K/mm3 MPV (9.4-12.3) fl Neutrophils % (Manual) (40-60) % Band Neutrophils % (0-10) % Lymphocytes % (Manual) (20-40) % Atypical Lymphs % % Monocytes % (Manual) (2-10) % Eosinophils % (Manual) (0.8-7.0) % Basophils % (Manual) (0.2-1.2) Platelet Estimate Plt Morphology Comment RBC Morph Comment Sodium (136-145) mEq/L Potassium (3.5-5.1) mEq/L Chloride (98-107) mEq/L Carbon Dioxide (21-32) mEq/L Anion Gap (5-15) BUN (7-18) mg/dL Creatinine (0.7-1.3) mg/dL Est Cr Clr Drug Dosing mL/min Estimated GFR (MDRD) (>60) mL/min BUN/Creatinine Ratio (14-18) Glucose (74-106) mg/dL Calcium (8.5-10.1) mg/dL Total Bilirubin (0.2-1.0) mg/dL AST (15-37) U/L ALT (16-63) U/L Alkaline Phosphatase (46-116) U/L Total Protein (6.4-8.2) g/dl Albumin (3.4-5.0) g/dl Globulin gm/dL Albumin/Globulin Ratio (1-2) Urine Color (Yellow) Urine Appearance (Clear) Urine pH (5.0-8.0) Ur Specific [place] (1.005-1.030) Urine Protein (Negative) Urine Glucose (UA) (Negative) Urine Ketones (Negative) Urine Occult Blood (Negative) Urine Nitrite (Negative) Urine Bilirubin (Negative) Urine Urobilinogen (0.2-1.0) Ur Leukocyte Esterase (Negative) Urine RBC (0-5) /hpf Urine WBC (0-5) /hpf Ur Epithelial Cells (0-5) /hpf Calcium Oxalate Crystal (NONE) Urine Bacteria (FEW) /hpf Hyaline Casts (0-5) /lpf Fine Granular Casts (0-5) /lpf Urine Mucus (FEW) /hpf Urine Opiates Screen Negative (NEGATIVE) Ur Buprenorphine Scrn Negative (NEGATIVE) Ur Oxycodone Screen Negative (NEGATIVE) Urine Methadone Screen Negative (NEGATIVE) Ur Propoxyphene Screen Negative (NEGATIVE) Ur Barbiturates Screen Negative (NEGATIVE) Ur Tricyclics Screen Negative (NEGATIVE) Ur Phencyclidine Scrn Negative (NEGATIVE) Ur Amphetamine Screen Negative (NEGATIVE) U Methamphetamines Scrn Negative (NEGATIVE) U Benzodiazepines Scrn Negative (NEGATIVE) U Cocaine Metab Screen Negative (NEGATIVE) U Marijuana (THC) Screen Negative (NEGATIVE) Ethyl Alcohol (0.00) gm% Meds: Medications Discontinued Medications Generic Name Dose Route Start Last Admin Trade Name Freq PRN Reason Stop Dose Admin Lorazepam 1 mg 04/18/18 02:50 04/18/18 03:04 Ativan IVPUSH 04/18/18 02:51 1 mg ONETIME ONE Administration Potassium Chloride 40 meq 04/18/18 04:09 04/18/18 04:26 Klor-Con M20 PO 04/18/18 04:10 40 meq ONETIME ONE Administration Departure - Departure Time of Disposition: 06:02 Disposition: Home, Self-Care 01 Clinical Impression: Seizure-like activity - Discharge Information Prescriptions: LORazepam [Ativan] 0.5 mg PO BEDTIME #10 tab Referrals: PCP,None [Primary Care Provider] - Forms: ED Department Discharge Additional Instructions: Return to the emergency room with any questions problems or other concerns. Establish with a local doctor and arranged to have an EEG done. Stop the Etizalam. Use the Ativan as directed. No driving or operating potentially hazardous equipment until cleared by a physician to do so. - My Orders Last 24 Hours: My Active Orders 04/18/18 03:07 EKG Documentation Completion [RC] STAT 04/18/18 04:46 Head wo Cont [CT] Stat - Assessment/Plan Last 24 Hours: My Active Orders 04/18/18 03:07 EKG Documentation Completion [RC] STAT 04/18/18 04:46 Head wo Cont [CT] Stat
[2018-04-18] MEDS ORDERED: LORazepam 2 MG/ML SDV IVPUSH ONE (02:50)
[2018-04-18] MEDS ORDERED: Potassium Chloride 20 MEQ Tab.ER PO ONE (04:09)
[2018-04-18 04:26] VITALS: BP 123/54
--- NOTE | 2018-04-19 07:20 | CT ---
Head CT Technique: Multiple axial sections through the brain were obtained. Intravenous contrast was not utilized. Comparison: No prior intracranial imaging. Findings: Ventricles along with basal cisterns and sulci over the convexities are within normal limits for the patient's age. No abnormal parenchymal densities are seen. No evidence of intracranial hemorrhage. No midline shift or mass effect is seen. No acute calvarial abnormality is seen. Minimal mucosal thickening is seen within the ethmoid sinuses which is felt to be incidental. Impression: 1. Incidental sinus finding. 2. No acute intracranial abnormality is appreciated on noncontrast head CT exam. Diagnostic code #2 I agree with preliminary report issued by [facility] ([facility] preliminary report dictated on 04/18/18, 6:56 AM Central Time)
== END 2018-04-18 06:15 | disposition home or self-care (01) ==
LOC: JD.ED 02:18
DX: R56.9 Unspecified convulsions (principal)
CPT/HCPCS: 36415; 70450; 80053; 80306; 81001; 85007; 85027; 93005; 96374; 99284; A9270; G0480; J2060

== ENCOUNTER 2020-02-29 16:46 | Emergency (ER) | payer SELFPAY ==
--- NOTE | 2020-02-29 16:56 | EDM.PDOC ---
ED HPI GENERAL MEDICAL PROBLEM - General Chief Complaint: Genitourinary Problem Stated Complaint: BLOOD IN URINE/COLON WHILE URINATING Time Seen by Provider: 02/29/20 16:55 Source of Information: Reports: Patient History Limitations: Reports: No Limitations - History of Present Illness INITIAL COMMENTS - FREE TEXT/NARRATIVE: 24-year-old male presents to the ED with diffuse right flank pain rating down to the right groin for most of today. He states he has been having blood in his urine for about a week but no significant pain. Over the last 12 hours she is developed acute onset of right flank pain rating down to his right groin with a constant feeling of need to void. No nausea or vomiting. He also appreciates intense burning with voiding suggesting an infective process. The worst part of the burning is at the end of voiding. He has had low-grade fever and a few chills. 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 He estimates that he has had renal stones at least twice in the past. One was greater than a centimeter and required lithotripsy and the other when he passed on his own. Is highly suspect of course that he has a recurrent stone. Last one was about a year ago. He did he denies being sexually active. Denies any purulent discharge from the penis. Onset: Today (Sudden onset of right flank pain and dysuria urgency and feeling of need to void quite often since noon today.), Other (He developed gross hematuria in the urine for the better part of a week.) Duration: Hour(s): (Acute onset of right flank pain rating down to the right groin for the last 9 hours.) Location: Reports: Abdomen (Flank right abdomen down to the groin.), Back Quality: Reports: Ache, Sharp, Stabbing, Other Severity: Moderate (Strong colicky component to the pain but it is constant. Really rates his pain is 7 out of 10.) Improves with: Reports: None Worsens with: Reports: None Context: Reports: Other (Antonio is occurrence). Denies: Activity, Exercise, Lifting, Sick Contact, Trauma Associated Symptoms: Reports: Loss of Appetite. Denies: No Other Symptoms, Confusion, Chest Pain, Cough, cough w sputum, Diaphoresis, Fever/Chills, Headaches, Malaise, Nausea/Vomiting, Rash, Seizure, Shortness of Breath, Syncope, Weakness Treatments [employer]: Reports: Other (see below) (None.) Right Flank Pain Score (Numeric/FACES): 7 - Related Data Allergies Allergy/AdvReac Type Severity Reaction Status Date / Time No Known Allergies Allergy Verified 02/29/20 17:03 Home Meds: Home Meds Sulfamethoxazole/Trimethoprim [Bactrim Ds Tablet] 1 each PO DAILY #7 tablet 02/29/20 [Rx] Tamsulosin HCl [Flomax] 0.4 mg PO BEDTIME #5 cap.er.24h 02/29/20 [Rx] diphenhydrAMINE [Benadryl] 50 mg PO BEDTIME PRN 02/29/20 [History] oxyCODONE HCl/Acetaminophen [Percocet 5-325 mg Tablet] 1 - 2 each PO Q4H PRN #16 tablet 02/29/20 [Rx] Past Medical History HEENT History: Reports: Allergic Rhinitis Gastrointestinal History: Reports: GERD, Hemorrhoids Other Gastrointestinal History: hx constipation and abdominal pain Genitourinary History: Reports: Renal Calculus Other Genitourinary History: 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 Musculoskeletal History: Reports: Fracture Other Musculoskeletal History: left hand Neurological History: Reports: Migraines Psychiatric History: Reports: Addiction, Anxiety, Panic Attack, PTSD Endocrine/Metabolic History: Reports: Obesity/BMI 30+ - Past Surgical History HEENT Surgical History: Reports: Oral Surgery Male Surgical History: Reports: Lithotripsy ([facility]), Nephrectomy, Other (See Below) Musculoskeletal Surgical History: Reports: ORIF Social & Family History - Family History Family Medical History: Noncontributory Psychiatric: Reports: Anxiety - Caffeine Use Caffeine Use: Reports: Energy Drinks - Living Situation & Occupation Living situation: Reports: Single, with Significant Other (Girlfriend) 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 Denies: Constipation, Diarrhea, Difficulty Swallowing, Distension, Flatus, Hematemesis, Hematochezia, Melena, Mucous in Stool, Nausea, Stool Incontinence, Vomiting : Reports: Dysuria, Flank Pain, Frequency, Hematuria (The better part of a week.), Urgency (Flank pain), Other (Minimal dysuria) Musculoskeletal: Reports: Back Pain (Right flank pain) Skin: Reports: No Symptoms Neurological: Reports: No Symptoms Psychiatric: Reports: No Symptoms Hematologic/Lymphatic: Reports: No Symptoms Immunologic: Reports: No Symptoms ED EXAM, RENAL/ - Physical Exam Exam: See Below Exam Limited By: No Limitations General Appearance: Alert, WD/WN, Mild Distress (He is in obvious pain and is writhing slightly on the bed. He is very stoic.), Other (Temperature is 37.4 with a heart rate of 107 and respiratory of 22 sats are 97% BP 160/86.) Eye Exam: Bilateral Eye: Normal Inspection (No scleral icterus or blepharal pallor.) Throat/Mouth: Normal Inspection, Normal Lips, Normal Oropharynx Respiratory/Chest: No Respiratory Distress, Lungs Clear, Normal Breath Sounds, No Accessory Muscle Use Cardiovascular: Normal Peripheral Pulses, Regular Rate, Rhythm, No Edema, No Gallop, No Murmur, No Rub GI/Abdominal: Soft, Non-Tender (Bowel sounds are fairly quiesced sent in all 4 quadrants.), No Organomegaly, No Abnormal Bruit, No Mass, Pelvis Stable, Abnormal Bowel Sounds. No: Guarding, Rigid, Rebound Back Exam: CVA Tenderness (R). No: CVA Tenderness (L) (Mild), Decreased Range of Motion Extremities: Normal Inspection, Normal Range of Motion, Non-Tender, No Pedal Edema Neurological: Alert, Oriented, CN II-XII Intact, Normal Cognition, Normal Gait Psychiatric: Normal Affect, Normal Mood, Other (Very stoic fellow. He is obviously in pain) Skin Exam: Warm, Dry, Intact, Normal Color, No Rash Course - Vital Signs Last Recorded V/S: Last Vital Signs Temp 37.4 C 02/29/20 16:58 Pulse 107 H 02/29/20 16:58 Resp 22 H 02/29/20 16:58 BP 160/86 H 02/29/20 16:58 Pulse Ox 97 02/29/20 16:58 - Orders/Labs/Meds Orders: Active Orders 24 hr Category Date Time Status Ketorolac [Toradol] Med 02/29/20 18:15 Active 30 mg IVPUSH ONETIME Sodium Chloride 0.9% [Normal Saline] 1,000 ml Med 02/29/20 18:15 Active IV ASDIRECTED Medication Orders Sodium Chloride (Normal Saline) 1,000 mls @ 150 mls/hr IV ASDIRECTED MICHAEL Last Admin: 02/29/20 18:14 Dose: 150 mls/hr Documented by: ELIF Ketorolac Tromethamine (Toradol) 30 mg IVPUSH ONETIME MICHAEL Last Admin: 02/29/20 18:12 Dose: 30 mg Documented by: ELIF Labs: Laboratory Tests 02/29/20 02/29/20 02/29/20 Range/Units 17:16 18:12 18:12 WBC 5.10 (4.23-9.07) K/mm3 RBC 5.71 (4.63-6.08) M/mm3 Hgb 15.0 (13.7-17.5) gm/dl Hct 45.2 (40.1-51.0) % MCV 79.2 (79.0-92.2) fl MCH 26.3 (25.7-32.2) pg MCHC 33.2 (32.2-35.5) g/dl RDW Std Deviation 39.2 (35.1-43.9) fL Plt Count 210 (163-337) K/mm3 MPV 12.0 (9.4-12.3) fl Neut % (Auto) 60.6 (34.0-67.9) % Lymph % (Auto) 29.2 (21.8-53.1) % [place] % (Auto) 10.0 (5.3-12.2) % Eos % (Auto) 0 L (0.8-7.0) Baso % (Auto) 0.2 (0.1-1.2) % Neut # (Auto) 3.09 (1.78-5.38) K/mm3 Lymph # (Auto) 1.49 (1.32-3.57) K/mm3 [place] # (Auto) 0.51 (0.30-0.82) K/mm3 Eos # (Auto) 0.00 L (0.04-0.54) K/mm3 Baso # (Auto) 0.01 (0.01-0.08) K/mm3 Sodium 138 (136-145) mEq/L Potassium 3.5 (3.5-5.1) mEq/L Chloride 102 (98-107) mEq/L Carbon Dioxide 26 (21-32) mEq/L Anion Gap 13.5 (5-15) BUN 9 (7-18) mg/dL Creatinine 1.2 (0.7-1.3) mg/dL Est Cr Clr Drug Dosing 98.85 mL/min Estimated GFR (MDRD) > 60 (>60) mL/min BUN/Creatinine Ratio 7.5 L (14-18) Glucose 103 (74-106) mg/dL Calcium 8.7 (8.5-10.1) mg/dL Total Bilirubin 0.3 (0.2-1.0) mg/dL AST 21 (15-37) U/L ALT 31 (16-63) U/L Alkaline Phosphatase 88 (46-116) U/L C-Reactive Protein <0.2 (<1.0) mg/dL Total Protein 8.2 (6.4-8.2) g/dl Albumin 4.4 (3.4-5.0) g/dl Globulin 3.8 gm/dL Albumin/Globulin Ratio 1.2 (1-2) Urine Color Yellow (Yellow) Urine Appearance Clear (Clear) Urine pH 6.0 (5.0-8.0) Ur Specific [place] > or = 1.030 (1.005-1.030) Urine Protein 2+ H (Negative) Urine Glucose (UA) Negative (Negative) Urine Ketones Negative (Negative) Urine Occult Blood 2+ H (Negative) Urine Nitrite Negative (Negative) Urine Bilirubin 1+ H (Negative) Urine Urobilinogen 0.2 (0.2-1.0) Ur Leukocyte Esterase Negative (Negative) Urine RBC 20-30 H (0-5) /hpf Urine WBC 0-5 (0-5) /hpf Ur Squamous Epith Cells 0-5 (0-5) /hpf Urine Bacteria Rare (FEW) /hpf Urine Mucus Moderate H (FEW) /hpf Meds: Medications Generic Name Dose Route Start Last Admin Trade Name Freq PRN Reason Stop Dose Admin Sodium Chloride 1,000 mls @ 150 mls/hr 02/29/20 18:15 02/29/20 18:14 Normal Saline IV 150 mls/hr ASDIRECTED MICHAEL Administration Ketorolac Tromethamine 30 mg 02/29/20 18:15 02/29/20 18:12 Toradol IVPUSH 30 mg ONETIME MICHAEL Administration Discontinued Medications Generic Name Dose Route Start Last Admin Trade Name Peña PRN Reason Stop Dose Admin Hydromorphone HCl 1 mg 02/29/20 18:02 02/29/20 18:13 Dilaudid IVPUSH 02/29/20 18:03 1 mg ONETIME ONE Administration Metoclopramide HCl 10 mg 02/29/20 18:03 02/29/20 18:12 Reglan IVPUSH 02/29/20 18:04 10 mg ONETIME ONE Administration - Radiology Interpretation Free Text/Narrative:: 24-year-old male presents to the ED with a week's history of what he believes to be gross hematuria. He had no pain however. Over the last 9 hours he is developed sudden onset of severe right flank pain and radiates down towards his right groin. This in turn causes urinary frequency urgency and dysuria particularly at the end of voiding. He is also developed a low-grade fever and has had some chills. He is slightly febrile in the ED. Plan. Normal saline at 150 mils per hour. Given Dilaudid 1 mg IV with Toradol 30 mg IV and Reglan 10 mg IV for pain and nausea relief. Urine collected for urinalysis. CT of the abdomen will be performed per renal protocol. Since he only has 1 kidney. Routine labs will be collected in terms of CBC CRP and CMP. - Re-Assessments/Exams Free Text/Narrative Re-Assessment/Exam: 02/29/20 18:28 Urinalysis shows 2+ proteinuria 2+ occult blood on the dip and 1+ bilirubin. Negative leukocyte esterase 20-30 red blood cells per high-power field no white cells no squamous epithelial cells and moderate mucus. 02/29/20 18:58 CT of the abdomen pelvis has been performed per renal protocol it identifies that he does only have a right kidney with mild hydronephrosis. The left kidney is absent. There are no stones within the right renal parenchyma. There is a 3.6 mm stone in the proximal right ureter which is causing mild to moderate obstruction. So advised of the findings. The stone is likely to pass on its own sometime in the next 72 hours. He is currently not working but has a job interview tomorrow. He will be discharged on Percocet tabs 5/325 mg 1 or 2 every 4-6 hours necessary for pain relief. He will strain his urine until the stone is identified to have passed. If it is not passed within the next 2 weeks he is to seek out urological consultation since he has only the one kidney. I am also going to place him on Bactrim double strength 1 tablet once daily for 7 days to prevent any urinary tract infection since he has only the one kidney. He will also be placed on Flomax 0.4 mg once daily at bedtime for 5 days in an effort to help the stone pass. Departure - Departure Time of Disposition: 19:01 Disposition: Home, Self-Care 01 Condition: Fair Clinical Impression: Renal colic on right side - Discharge Information *PRESCRIPTION DRUG MONITORING PROGRAM REVIEWED*: Not Applicable *COPY OF PRESCRIPTION DRUG MONITORING REPORT IN PATIENT MAR: Not Applicable Prescriptions: Sulfamethoxazole/Trimethoprim [Bactrim Ds Tablet] 1 each PO DAILY #7 tablet Tamsulosin HCl [Flomax] 0.4 mg PO BEDTIME #5 cap.er.24h oxyCODONE HCl/Acetaminophen [Percocet 5-325 mg Tablet] 1 - 2 each PO Q4H PRN #16 tablet PRN Reason: pain relief. Referrals: PCP,None [Primary Care Provider] - Forms: ED Department Discharge Additional Instructions: Evaluation in the emergency room today in regards to development of severe right flank pain rating down to your right groin burning with voiding particularly at the end of voiding. This was concerning for possible infection. You have appreciated blood in your urine for the better part of a week. History of kidney stones but known to have only a right kidney and no left kidney. CT of the abdomen today confirms a 3.6 mm stone in the upper or proximal right ureter which is currently causing your pain and problems. There are no other stones embedded within the right kidney tissue. You were treated with intravenous fluids and medication for pain relief Dilaudid for a total of 1 mg and 0.5 mg IV for pain relief and Toradol 30 mg IV for pain relief and Reglan for nausea relief. And at home is to strain the urine until the stone has identified to have passed. Medication should be Flomax 0.4 mg once daily at bedtime until the stone has passed or you have completed 5 tablets. Percocet tabs 5/325 mg strength 1 or 2 every 4-6 hours necessary for pain relief. Bactrim double strength 1 tablet once daily for the next 7 days to prevent urinary tract infection from stone occlusion of the ureter since you have only the one kidney. If the stone has not passed on its own in the next 2 weeks you will need to follow-up with your urology. Sepsis Event Note (ED) - Focused Exam Vital Signs: Vital Signs Temp Pulse Resp BP Pulse Ox 02/29/20 16:58 37.4 C 107 H 22 H 160/86 H 97 - My Orders Last 24 Hours: My Active Orders 02/29/20 18:15 Ketorolac [Toradol] 30 mg IVPUSH ONETIME Sodium Chloride 0.9% [Normal Saline] 1,000 ml IV ASDIRECTED - Assessment/Plan Last 24 Hours: My Active Orders 02/29/20 18:15 Ketorolac [Toradol] 30 mg IVPUSH ONETIME Sodium Chloride 0.9% [Normal Saline] 1,000 ml IV ASDIRECTED
[2020-02-29 17:03] VITALS: BP 160/86; PULSE 107
[2020-02-29] MEDS ORDERED: HYDROmorphone 1 MG/ML Syringe IVPUSH ONE (18:02)
[2020-02-29] MEDS ORDERED: Metoclopramide 10 MG/2 ML SDV IVPUSH ONE (18:03)
[2020-02-29] MEDS ORDERED: Sodium Chloride 0.9% 1,000 ML IV SCH (18:15)
[2020-02-29] MEDS ORDERED: Ketorolac 30 MG/ML SDV IVPUSH SCH (18:15)
--- NOTE | 2020-02-29 18:56 | CT ---
CT abdomen and pelvis Technique: Multiple axial sections were obtained from above the dome of the diaphragm inferiorly through the pubic symphysis. Intravenous and oral contrast not utilized. Comparison: Prior CT abdomen and pelvis study of 03/21/17. Findings: Left kidney is absent. Right kidney shows dilated collecting system. This finding is caused by a small obstructing stone within the proximal right ureter measuring approximately 4 mm. This is located at the UPJ. No other ureteral calculi are seen. No bladder calculi are seen. Minimal nonobstructing stone is noted inferiorly within the right kidney. Visualized lung bases show nothing acute. Liver contains no focal parenchymal abnormality. Spleen appears within normal limits. Adrenal glands show no nodule. Pancreas shows no discrete abnormality. Gallbladder contains no calcified gallstones. Aorta shows no aneurysm. No retroperitoneal adenopathy or mesenteric abnormalities are seen. No pelvic mass or adenopathy is seen. Appendix is seen which is normal. No pelvic mass or adenopathy is seen. No free fluid or inflammatory change is seen. Slight increased stool is noted throughout the colon. Bone window settings were reviewed which shows mild degenerative change within the spine. No acute osseous finding is appreciated. Impression: 1. Absent left kidney. 2. Dilated collecting system within the right kidney with findings compatible with proximal right ureteral stone measuring about 4 mm which is located at the UPJ. 3. Other findings believed to be nonacute as described above. Diagnostic code #3 This report was dictated in MDT
[2020-02-29] MEDS ORDERED: HYDROmorphone 0.5 MG/0.5 ML Syringe IVPUSH ONE (18:59)
== END 2020-02-29 19:26 | disposition home or self-care (01) ==
LOC: JD.ED 16:46
DX: N20.1 Calculus of ureter (principal); E66.9 Obesity, unspecified; Z68.35 Body mass index [BMI] 35.0-35.9, adult
CPT/HCPCS: 36415; 74176; 74176-26; 80053; 81001; 85025; 86140; 96374; 96375; 96376; 99284; 99284-25; J1170; J1885; J2765; J7030

== ENCOUNTER 2020-05-16 21:28 | Emergency (ER) | payer SELFPAY ==
[2020-05-16] MEDS ORDERED: Ondansetron 4 MG/2 ML SDV IVPUSH ONE (22:17)
[2020-05-16] MEDS ORDERED: LORazepam 2 MG/ML SDV IV ONE (22:17)
--- NOTE | 2020-05-16 22:20 | EDM.PDOC ---
ED HPI GENERAL MEDICAL PROBLEM - General Chief Complaint: General Stated Complaint: collapsed no memory Time Seen by Provider: 05/16/20 22:10 Source of Information: Reports: Patient History Limitations: Reports: No Limitations - History of Present Illness INITIAL COMMENTS - FREE TEXT/NARRATIVE: 24-year-old male presents to the ED after apparently being found unresponsive on the floor of his basement by his girlfriend. Patient has no recollection of what is happened to him. He is unsure how he ended up on the floor. He has a history of remote seizure 2 years ago documented by his girlfriend at that time with grand mal seizure activity. It was felt this may be secondary to taking a low-dose benzodiazepine for sleep that was prescribed through the Internet. He denies taking his medication. He has a history of using clonazepam 1 mg at bedtime help sleep but has not used it for at least 10 days. Denies any recent alcohol binges. He states has been going to the gym working out and feeling well. Denies headache at this time. He has diffuse low back pain particularly right flank rating down into the right hemiabdomen. He states he has had blood in his urine almost every day since diagnosis of the kidney stone back in early February of this year. His throat is quite hoarse. He indicates that once he came to he had a large volume emesis of supper. No blood was in the emesis. He does have a mild cough nonproductive. Appetite has been relatively poor today. On examination he clinically feels febrile. He denies any tongue pain or spitting up any blood denies losing control of his bowel or bladder. Denies any headache. He does not believe that anything hurts since falling to the floor. He reports his son is his girlfriend attended and he was able to get up and walk on his own volition. He states that he could speak normally. Onset: Today, Sudden Onset Date: 05/16/20 Onset Time: 21:10 Duration: Minutes:, Improving, Other (Feeling rather anxious at this time.) Location: Reports: Other Quality: Reports: Other Severity: Moderate (Pain in his right flank and low back.) Improves with: Reports: None Worsens with: Reports: None Context: Denies: Activity, Exercise, Lifting, Sick Contact, Trauma, Other Associated Symptoms: Reports: Confusion (Number much about what happened), Cough (Nonproductive cough), Loss of Appetite, Malaise, Nausea/Vomiting (Apparently had a large volume emesis after his girlfriend attended him on the basement floor.). 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) (Has taken no medications today.) Throat Pain Score (Numeric/FACES): 5 - Related Data Allergies Allergy/AdvReac Type Severity Reaction Status Date / Time No Known Allergies Allergy Verified 05/16/20 21:56 Home Meds: Home Meds clonazePAM [Klonopin] 1 mg PO DAILY 05/16/20 [History] Past Medical History HEENT History: Reports: Allergic Rhinitis Gastrointestinal History: Reports: GERD, Hemorrhoids Other Gastrointestinal History: hx constipation and abdominal pain Genitourinary History: Reports: Renal Calculus Other Genitourinary History: 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 Musculoskeletal History: Reports: Fracture Other Musculoskeletal History: left hand Neurological History: Reports: Migraines Psychiatric History: Reports: Addiction, Anxiety, Panic Attack, PTSD Endocrine/Metabolic History: Reports: Obesity/BMI 30+ - Past Surgical History HEENT Surgical History: Reports: Oral Surgery Male Surgical History: Reports: Lithotripsy (ESWL), Nephrectomy, Other (See Below) Musculoskeletal Surgical History: Reports: ORIF Social & Family History - Family History Family Medical History: Noncontributory Psychiatric: Reports: Anxiety - Tobacco Use Tobacco Use Status *Q: Never Tobacco User - Caffeine Use Caffeine Use: Reports: Energy Drinks - Living Situation & Occupation Living situation: Reports: Single, with Significant Other (Girlfriend) 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 Denies: Fever, Chills HEENT: Reports: No Symptoms Respiratory: Reports: Cough (Nonproductive mild) Cardiovascular: Reports: No Symptoms Endocrine: Reports: No Symptoms GI/Abdominal: Reports: Nausea, Vomiting (Moderate amount of partially digested food and bilious emesis after he recovered from collapse on the floor at home.). Denies: Abdominal Pain : Reports: Hematuria (Is appreciated blood in his urine on a daily basis since early February as diagnosed with a right-sided kidney stone. He has never screened his urine to identify the stone to have passed.) Musculoskeletal: Reports: Back Pain (Right flank pain low back pain) Skin: Reports: No Symptoms Neurological: Reports: Confusion (Can remember what he did earlier today.) Psychiatric: Reports: Anxiety (Admits to feeling quite anxious at this time) Hematologic/Lymphatic: Reports: No Symptoms Immunologic: Reports: No Symptoms ED EXAM, GENERAL - Physical Exam Exam: See Below Exam Limited By: No Limitations General Appearance: Alert, WD/WN, Anxious, Mild Distress, Other (Patient does feel warm to palpation. There are no documented vital signs at this time.) Eye Exam: Bilateral Eye: Normal Inspection (No bladder propeller wound scleral icterus.), PERRL Ears: Normal External Exam Throat/Mouth: Other (Tongue is mildly dry and coated. No sign of) Head: Atraumatic ( bite injury.), Normocephalic, Other Neck: Normal Inspection (No overt signs of any head or facial trauma.), Supple, Non-Tender, Full Range of Motion. No: Carotid Bruit, Lymphadenopathy (L), Lymphadenopathy (R) Respiratory/Chest: No Respiratory Distress, Lungs Clear, Normal Breath Sounds, No Accessory Muscle Use Cardiovascular: Normal Peripheral Pulses, Regular Rate, Rhythm, No Edema, No Gallop, No Murmur, No Rub Peripheral Pulses: 3+: Carotid (L), Carotid (R), Posterior Tibial (L), Posterior Tibial (R), Dorsalis Pedis (L), Dorsalis Pedis (R) GI/Abdominal: Normal Bowel Sounds, Soft, Non-Tender, No Organomegaly, No Mass, Pelvis Stable Back Exam: Normal Inspection, Full Range of Motion. No: CVA Tenderness (L), CVA Tenderness (R) Extremities: Normal Inspection, Normal Range of Motion, Non-Tender, No Pedal Edema Neurological: Alert, Oriented, CN II-XII Intact, Normal Cognition Psychiatric: Anxious Skin Exam: Warm, Dry, Intact, Normal Color, No Rash #1 Interpretation EKG Date: 05/16/20 Time: 23:08 Rhythm: Other (Sinus tachycardia) Rate (Beats/Min): 110 [place]: Normal P-Wave: Present QRS: Other (Early R wave transition consider right ventricular hypertrophy/septal hypertrophy pattern. There is a diffuse nonspecific intraventricular conduction delay pattern.) ST-T: Other (Diffuse early repolarization pattern) QT: Prolonged (QTC is moderately prolonged) EKG Interpretation Comments: Abnormal ECG. Suggest patient have echocardiogram and cardiology consult. Course - Orders/Labs/Meds Orders: Active Orders 24 hr Category Date Time Status EKG Documentation Completion [RC] STAT Care 05/16/20 22:23 Active Abdomen Pelvis wo Cont [CT] Stat Exams 05/16/20 23:10 Taken Dextrose 5%-0.9% NaCl [Dextrose 5%-Normal Saline] 1,000 Med 05/16/20 22:30 Active ml IV ASDIRECTED Magnesium Citrate [Citrate of Magnesia] Med 05/17/20 00:17 Once 240 ml PO ONETIME ONE Medication Orders Dextrose/Sodium Chloride (Dextrose 5%-Normal Saline) 1,000 mls @ 500 mls/hr IV ASDIRECTED MICHAEL Last Admin: 05/16/20 22:34 Dose: 500 mls/hr Documented by: FINN Labs: Laboratory Tests 05/16/20 05/16/20 05/16/20 Range/Units 22:23 22:23 22:23 WBC 8.20 (4.23-9.07) K/mm3 RBC 5.72 (4.63-6.08) M/mm3 Hgb 14.7 (13.7-17.5) gm/dl Hct 44.4 (40.1-51.0) % MCV 77.6 L (79.0-92.2) fl MCH 25.7 (25.7-32.2) pg MCHC 33.1 (32.2-35.5) g/dl RDW Std Deviation 39.8 (35.1-43.9) fL Plt Count 254 (163-337) K/mm3 MPV 11.1 (9.4-12.3) fl Neut % (Auto) 66.5 (34.0-67.9) % Lymph % (Auto) 19.6 L (21.8-53.1) % [place] % (Auto) 13.5 H (5.3-12.2) % Eos % (Auto) 0 L (0.8-7.0) Baso % (Auto) 0.0 L (0.1-1.2) % Neut # (Auto) 5.45 H (1.78-5.38) K/mm3 Lymph # (Auto) 1.61 (1.32-3.57) K/mm3 [place] # (Auto) 1.11 H (0.30-0.82) K/mm3 Eos # (Auto) 0.00 L (0.04-0.54) K/mm3 Baso # (Auto) 0.00 L (0.01-0.08) K/mm3 Sodium 139 (136-145) mEq/L Potassium 3.8 (3.5-5.1) mEq/L Chloride 101 (98-107) mEq/L Carbon Dioxide 26 (21-32) mEq/L Anion Gap 15.8 H (5-15) BUN 12 (7-18) mg/dL Creatinine 1.4 H (0.7-1.3) mg/dL Est Cr Clr Drug Dosing 2.96 mL/min Estimated GFR (MDRD) > 60 (>60) mL/min BUN/Creatinine Ratio 8.6 L (14-18) Glucose 89 (74-106) mg/dL Lactic Acid 1.2 (0.4-2.0) mmol/L Calcium 9.6 (8.5-10.1) mg/dL Total Bilirubin 0.4 (0.2-1.0) mg/dL AST 28 (15-37) U/L ALT 33 (16-63) U/L Alkaline Phosphatase 89 (46-116) U/L Creatine Kinase 699 H (39-308) U/L C-Reactive Protein <0.2 (<1.0) mg/dL Total Protein 8.4 H (6.4-8.2) g/dl Albumin 4.6 (3.4-5.0) g/dl Globulin 3.8 gm/dL Albumin/Globulin Ratio 1.2 (1-2) Urine Color (Yellow) Urine Appearance (Clear) Urine pH (5.0-8.0) Ur Specific [place] (1.005-1.030) Urine Protein (Negative) Urine Glucose (UA) (Negative) Urine Ketones (Negative) Urine Occult Blood (Negative) Urine Nitrite (Negative) Urine Bilirubin (Negative) Urine Urobilinogen (0.2-1.0) Ur Leukocyte Esterase (Negative) Urine RBC (0-5) /hpf Urine WBC (0-5) /hpf Ur Squamous Epith Cells (0-5) /hpf Urine Bacteria (FEW) /hpf Urine Mucus (FEW) /hpf Urine Opiates Screen (NBMQEI=126) Ur Buprenorphine Scrn (CUTOFF=10) Ur Oxycodone Screen (VUR8HN=110) Urine Methadone Screen (KRP3FW=655) Ur Propoxyphene Screen (HWFLBC=314) Ur Barbiturates Screen (SPFUZD=381) Ur Tricyclics Screen (EUJPDZ=502) Ur Phencyclidine Scrn (CUTOFF=25) Ur Amphetamine Screen (GIEZBM=798) U Methamphetamines Scrn (VZETNT=254) U Benzodiazepines Scrn (SNNQGD=894) U Cocaine Metab Screen (GJNPPX=554) U Marijuana (THC) Screen (CUTOFF=50) SARS-CoV-2 RNA (CRUZITO) (NEGATIVE) 05/16/20 05/16/20 05/16/20 Range/Units 22:40 22:46 22:46 WBC (4.23-9.07) K/mm3 RBC (4.63-6.08) M/mm3 Hgb (13.7-17.5) gm/dl Hct (40.1-51.0) % MCV (79.0-92.2) fl MCH (25.7-32.2) pg MCHC (32.2-35.5) g/dl RDW Std Deviation (35.1-43.9) fL Plt Count (163-337) K/mm3 MPV (9.4-12.3) fl Neut % (Auto) (34.0-67.9) % Lymph % (Auto) (21.8-53.1) % [place] % (Auto) (5.3-12.2) % Eos % (Auto) (0.8-7.0) Baso % (Auto) (0.1-1.2) % Neut # (Auto) (1.78-5.38) K/mm3 Lymph # (Auto) (1.32-3.57) K/mm3 [place] # (Auto) (0.30-0.82) K/mm3 Eos # (Auto) (0.04-0.54) K/mm3 Baso # (Auto) (0.01-0.08) K/mm3 Sodium (136-145) mEq/L Potassium (3.5-5.1) mEq/L Chloride (98-107) mEq/L Carbon Dioxide (21-32) mEq/L Anion Gap (5-15) BUN (7-18) mg/dL Creatinine (0.7-1.3) mg/dL Est Cr Clr Drug Dosing mL/min Estimated GFR (MDRD) (>60) mL/min BUN/Creatinine Ratio (14-18) Glucose (74-106) mg/dL Lactic Acid (0.4-2.0) mmol/L Calcium (8.5-10.1) mg/dL Total Bilirubin (0.2-1.0) mg/dL AST (15-37) U/L ALT (16-63) U/L Alkaline Phosphatase (46-116) U/L Creatine Kinase (39-308) U/L C-Reactive Protein (<1.0) mg/dL Total Protein (6.4-8.2) g/dl Albumin (3.4-5.0) g/dl Globulin gm/dL Albumin/Globulin Ratio (1-2) Urine Color Yellow (Yellow) Urine Appearance Clear (Clear) Urine pH 6.5 (5.0-8.0) Ur Specific [place] > or = 1.030 (1.005-1.030) Urine Protein 2+ H (Negative) Urine Glucose (UA) Negative (Negative) Urine Ketones Negative (Negative) Urine Occult Blood 3+ H (Negative) Urine Nitrite Negative (Negative) Urine Bilirubin Negative (Negative) Urine Urobilinogen 0.2 (0.2-1.0) Ur Leukocyte Esterase Negative (Negative) Urine RBC 20-30 H (0-5) /hpf Urine WBC 0-5 (0-5) /hpf Ur Squamous Epith Cells 0-5 (0-5) /hpf Urine Bacteria Few (FEW) /hpf Urine Mucus Few (FEW) /hpf Urine Opiates Screen Negative (HXPPMY=302) Ur Buprenorphine Scrn Negative (CUTOFF=10) Ur Oxycodone Screen Negative (KTX6FI=810) Urine Methadone Screen Presumptive positive H (SRE0PK=430) Ur Propoxyphene Screen Negative (VOCKWB=005) Ur Barbiturates Screen Negative (XVNYOO=148) Ur Tricyclics Screen Presumptive positive H (UUZHJD=523) Ur Phencyclidine Scrn Negative (CUTOFF=25) Ur Amphetamine Screen Negative (DXEWPM=799) U Methamphetamines Scrn Negative (RJFSIJ=183) U Benzodiazepines Scrn Negative (BSLSMC=892) U Cocaine Metab Screen Negative (MSEFSO=686) U Marijuana (THC) Screen Negative (CUTOFF=50) SARS-CoV-2 RNA (CRUZITO) Negative (NEGATIVE) Meds: Medications Generic Name Dose Route Start Last Admin Trade Name Peña PRN Reason Stop Dose Admin Dextrose/Sodium Chloride 1,000 mls @ 500 mls/hr 05/16/20 22:30 05/16/20 22:34 Dextrose 5%-Normal Saline IV 500 mls/hr ASDIRECTED MICHAEL Administration Discontinued Medications Generic Name Dose Route Start Last Admin Trade Name Peña PRN Reason Stop Dose Admin Hydromorphone HCl 1 mg 05/16/20 23:17 05/16/20 23:32 Dilaudid IVPUSH 05/16/20 23:18 1 mg ONETIME ONE Administration Lorazepam 1 mg 05/16/20 22:17 05/16/20 22:35 Ativan IV 05/16/20 22:18 1 mg ONETIME ONE Administration Ondansetron HCl 4 mg 05/16/20 22:17 05/16/20 22:35 Zofran IVPUSH 05/16/20 22:18 4 mg ONETIME ONE Administration - Radiology Interpretation Free Text/Narrative:: 24-year-old male presents to the ED after reportedly being found unresponsive on the floor of the basement of his home by his girlfriend. Apparently responded to her physical stimuli. Apparently he vomited a large amount of partially d igested food and bilious emesis. He states he was able to talk right away and make sense and was up and about with no signs of weakness to suggest postictal symptoms. He has a remote history of a seizure in April of 2018 which was felt to have been precipitated by taking a low-dose benzodiazepine intermittently for disorder. He is unclear whether he actually suffered a seizure since he was not showing any signs of postictal illness. He vomited right away suggesting he may have had vasovagal syncope. Plan IV D5 normal saline at 500 mils per hour. He is quite anxious at this time and rather tremulous. I am going to give him Ativan 1 mg IV to prevent any further seizure activity and to quell his anxiety. Zofran 4 mg IV for nausea relief. Routine labs to be performed including a lactic acid which should rule out a grand mal convulsion. He is warm to palpation and a COVID-19 screen will be done and sent to [facility]. - Re-Assessments/Exams Free Text/Narrative Re-Assessment/Exam: 05/16/20 23:10 White blood cell count is normal at 8.20. Differential reviewed 66% sent neutrophils on the auto differential. Hemoglobin is 14.7 with hematocrit of 44.4. MCV is slightly low at 77.6. Platelet count is normal at 254,000. Urinalysis is revealing 2+ proteinuria 3+ occult blood. Does show 20- 30 RBCs per high-power field. Patient will therefore have CT of the abdomen and pelvis per renal protocol. 05/16/20 23:17 and is having a good deal of pain at this time in the right flank and right lower back. [place] to be secondary to renal colic. I have reviewed a CT of the abdomen pelvis carried out on February 28 when he presented with acute right renal colic. At that time he was found to have a obstructing stone within the proximal right ureter measuring approximately 4 mm. This was located at the UPJ. 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 Patient will therefore been Dilaudid 1 mg IV for further pain relief. 05/16/20 23:59 Sodium 139 with a potassium of 3.8. Chloride 101 with a bicarb of 26. Anion gap is 15.8. BUN is 12 with a creatinine of 1.4. GFR is greater than 60. Glucose is 89 lactic acid 1.2 calcium 9.6 bilirubin 0.4 and remainder of liver function is normal. CPK is elevated at 699 compared with a fall to the floor with blunt trauma to his muscles. C-reactive protein is less than 0.2 total protein 8.4 with an albumin fraction of 4.6. Urine drug screen is presumptive positive for methadone and tricyclic's COVID-19 screen is negative. 05/17/20 00:01 the scan of the abdomen pelvis was done per renal protocol. Visualized portions of the lungs are normal. Cardiac silhouette appears normal. Does have a mild hiatal hernia and patulous esophagus. Liver appears to show some increased fatty infiltration. Gallbladder appears to be normal without calcified gallstones. Pancreas normal spleen normal. The left kidney is absent. The right kidney is mildly hypertrophic. There is a solitary kidney stone measuring 2.5 mm in the right renal parenchyma. The right renal pelvis is mildly dilated as is the proximal ureter but no stone is identified within the ureter. No stone identified within the urinary bladder. There is a large amount of stool throughout the entire colon. Small bowel gas distribution normal. Prostate normal. Urinary bladder appears to be within normal limits. 05/17/20 00:17 Discussed the findings with the patient. He has no idea how his urine could have show positivity for methadone or tricyclic antidepressant. Patient reassured at this time no signs of renal colic or stone within the right ureter. It appears that most of his right flank and abdominal pain is secondary to constipation as it is particularly bad throughout the right hemicolon and hepatic flexure. He will be discharged on Citroma to take 8 ounces mixed with 6 ounces of juice of choice tomorrow morning to provide bowel cleanse. Appears he most likely developed a vasovagal reaction and syncope causing his transient loss of conscious at home tonight. There is no laboratory evidence of a seizure as his lactic acid is normal. Departure - Departure Time of Disposition: 00:19 Disposition: Home, Self-Care 01 Condition: Fair Clinical Impression: Vasovagal syncope - Discharge Information *PRESCRIPTION DRUG MONITORING PROGRAM REVIEWED*: Not Applicable *COPY OF PRESCRIPTION DRUG MONITORING REPORT IN PATIENT MAR: Not Applicable Referrals: Kamryn Alejandro PA-C [Primary Care Provider] - Forms: ED Department Discharge Additional Instructions: Evaluation in the emergency room tonight in regards to collapse and loss of consciousness at home tonight. As you indicated your details of what it happened earlier today are fuzzy and unclear to you. The concern was whether or not you had experienced a seizure as you had been identified to have a seizure in April 2018. No recent alcohol or drug use. Evaluation does not show any signs of significant trauma to your head neck or extremities from a fall to the floor. You were clinically warm to palpation suggesting fever. Repeat COVID-19 screen was done during your stay in the ED and you were negative. Lab tests were also negative for any elevated white blood cell count to suggest a bacterial infection or viral infection. There was 20-30 red blood cells per high-power field in your urine and I would suggest contacting your personal care physician to arrange a urology consultation to see where this blood is coming from. CT scan of the pelvis and abdomen was carried out per renal protocol and no stone is identified within the right ureter. There is a 3 mm stone in the lower pole of the right kidney tissue which should not be causing any problems at this time. It may become problematic in the future with passage of another stone. Stone identified on CT exam in February has passed. The left kidney remains absent of course. The CT does reveal a large amount of stool throughout the entire right hemicolon and most of the transverse colon that travels from right to left across the upper abdomen combined with constipation. This may be causing back pain and abdominal pain and can cause nausea and vomiting. You did receive IV fluids to rehydrate you in the ED and a dose of Ativan 1 mg as well as a dose of Dilaudid 1 mg pain relief and Zofran 4 mg IV for nausea relief. Labs do not support any evidence of having had a seizure. A seizure will usually increase her lactic acid in your bloodstream and this is not evident. I suspect you have suffered a vasovagal fainting episode which occurs as part of the nausea vomiting reflex. This could have been set off by abdominal cramping pain as well. At this time no further medication is indicated. I would suggest use of magnesium citrate or Citroma taking 8 ounces tomorrow morning with 6 ounces of juice of choice or Gatorade Powerade by mouth once. This will usually get your bowels working within 1 to 2 hours and usually will have 4 5 bowel movements ending in some degree of diarrhea but will provide bowel cleanse and relief of abdominal pain. Suggest follow-up with your personal physician within the next few weeks for repeat urinalysis and referral to urologist if you still have significant red blood cells in your urine. Sepsis Event Note (ED) - Evaluation Sepsis Screening Result: No Definite Risk - My Orders Last 24 Hours: My Active Orders 05/16/20 22:23 EKG Documentation Completion [RC] STAT 05/16/20 22:30 Dextrose 5%-0.9% NaCl [Dextrose 5%-Normal Saline] 1,000 ml IV ASDIRECTED 05/16/20 23:10 Abdomen Pelvis wo Cont [CT] Stat 05/17/20 00:17 Magnesium Citrate [Citrate of Magnesia] 240 ml PO ONETIME ONE - Assessment/Plan Last 24 Hours: My Active Orders 05/16/20 22:23 EKG Documentation Completion [RC] STAT 05/16/20 22:30 Dextrose 5%-0.9% NaCl [Dextrose 5%-Normal Saline] 1,000 ml IV ASDIRECTED 05/16/20 23:10 Abdomen Pelvis wo Cont [CT] Stat 05/17/20 00:17 Magnesium Citrate [Citrate of Magnesia] 240 ml PO ONETIME ONE
[2020-05-16] MEDS ORDERED: Dextrose 5%-0.9% NaCl 1,000 ML IV SCH (22:30)
[2020-05-16] MEDS ORDERED: HYDROmorphone 1 MG/ML Syringe IVPUSH ONE (23:17)
[2020-05-17] MEDS ORDERED: Magnesium Citrate Solution 296 ML Bottle PO ONE (00:17)
--- NOTE | 2020-05-17 09:15 | CT ---
"PROCEDURE INFORMATION: Exam: CT Abdomen And Pelvis Without Contrast Exam date and time: 05/16/2020 11:44 PM Age: 24 years old Clinical indication: Abdominal pain; Flank; Right TECHNIQUE: Imaging protocol: Computed tomography of the abdomen and pelvis without contrast. Radiation optimization: All CT scans at this facility use at least one of these dose optimization techniques: automated exposure control; mA and/or kV adjustment per patient size (includes targeted exams where dose is matched to clinical indication); or iterative reconstruction. COMPARISON: CT Abdomen Pelvis wo Cont 02/29/2020 6:34 PM FINDINGS: Lungs: Minor left basilar consolidation of a subsegmental appearance which may represent an early infiltrate. This was not present on prior study 02/29/2020. See series 2, images 4 through 16 with lung windows. Liver: Normal. No mass. Gallbladder and bile ducts: Normal. No calcified stones. No ductal dilation. Pancreas: Normal. No ductal dilation. Spleen: Normal. No splenomegaly. Adrenal glands: Normal. No mass. Kidneys and ureters: Right lower pole 3 mm nonobstructive renal calculus. No hydronephrosis. No ureteral dilatation. Absent left kidney. Recommend clinical correlation. Kidney was not present on prior study dated 2016. Stomach and bowel: No bowel edema. No obstructive bowel features. Moderate fecal retention in the right colon and transverse colon. Appendix: A normal appendix is visible. See series 2, images 99 through 81. Intraperitoneal space: No free fluid in the abdomen or pelvis. Vasculature: Unremarkable. No abdominal aortic aneurysm. WILMAHIMANSHU | Final Radiology Report CONFIDENTIALITY STATEMENT This report is intended only for use by the referring physician, and only in accordance with law. If you received this in error, call [phone]. Page 2 of 2 Lymph nodes: Unremarkable. No enlarged lymph nodes. Urinary bladder: Unremarkable as visualized. Reproductive: Unremarkable as visualized. Bones/joints: Unremarkable. No acute fracture. Soft tissues: Unremarkable. IMPRESSION: 1. No acute hydronephrosis or renal inflammation. Right lower pole 3 mm nonobstructive calculus. 2. Absent left kidney. 3. Moderate fecal retention in the right colon and transverse colon. No acute bowel edema or obstructive features. 4. A normal appendix is visible. Thank you for allowing us to participate in the care of your patient. Dictated and Authenticated by: Nicholas Corona MD 05/17/2020 1:17 AM Central Time ([place] & [place]) ARLEEN"
== END 2020-05-17 00:38 | disposition home or self-care (01) ==
LOC: JD.ED 21:28
DX: R55 Syncope and collapse (principal); F41.9 Anxiety disorder, unspecified; E66.9 Obesity, unspecified; Z20.828 Contact with and (suspected) exposure to other viral communicable diseases
CPT/HCPCS: 36415; 80053; 80306; 81001; 82550; 83605; 85025; 86140; 87635; 93005; 96365; 96375; 99284; A9270; J1170; J2060; J2405; J7042; 74176-26; 93010; U0002

== ENCOUNTER 2020-10-20 09:03 | Emergency (ER) | payer BC ==
[2020-10-20] MEDS ORDERED: Sodium Chloride 0.9% 10 ML Syringe FLUSH PRN (09:44)
[2020-10-20] MEDS ORDERED: LORazepam 2 MG/ML SDV IVPUSH ONE (09:45)
--- NOTE | 2020-10-20 10:39 | EDM.PDOC ---
ED HPI GENERAL MEDICAL PROBLEM - General Chief Complaint: Neurological Problem Stated Complaint: SEIZURE 15 MINUTES AGO Time Seen by Provider: 10/20/20 09:23 Source of Information: Reports: Patient, Family History Limitations: Reports: No Limitations - History of Present Illness INITIAL COMMENTS - FREE TEXT/NARRATIVE: The patient presents because of a seizure. He had a 45 second full body tonic/clonic seizure. He said this is the second one he had. He had one a couple years ago and then had a unresponsive episode this winter. He is not on any antiepileptic and he never saw a neurologist. He has a history of anxiety, PTSD and ADHD. He is currently on ritalin 10mg that he takes as needed. He has not been sleeping well the past week due to night terrors. He was seeing a psychiatrist but he stopped going and now he is seeing Mikaela Alejandro in our clinic. His tongue is sore where he bit it. He has no fever, chills, cough, chest pain, shortness of breath, abdominal pain, nausea or vomiting. He says he was on klonopin in the past and it worked well for his PTSD and anxiety. He does not drink alcohol. Onset: Sudden Duration: Minutes: Location: Reports: Generalized Quality: Reports: Ache Severity: Moderate Improves with: Reports: None Worsens with: Reports: None Associated Symptoms: Reports: No Other Symptoms Oral/Mouth Pain Score (Numeric/FACES): 3 - Related Data Allergies Allergy/AdvReac Type Severity Reaction Status Date / Time No Known Allergies Allergy Verified 10/20/20 09:16 Home Meds: Home Meds ClonazePAM [KlonoPIN] 0.5 mg PO BID #60 tab 10/20/20 [Rx] Methylphenidate HCl [Ritalin] 0 mg PO BID 10/20/20 [History] Past Medical History HEENT History: Reports: Allergic Rhinitis Gastrointestinal History: Reports: GERD, Hemorrhoids Other Gastrointestinal History: hx constipation and abdominal pain Genitourinary History: Reports: Renal Calculus Other Genitourinary History: 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 Musculoskeletal History: Reports: Fracture Other Musculoskeletal History: left hand Neurological History: Reports: Migraines Psychiatric History: Reports: Addiction, Anxiety, Panic Attack, PTSD Endocrine/Metabolic History: Reports: Obesity/BMI 30+ - Past Surgical History HEENT Surgical History: Reports: Oral Surgery GI Surgical History: Reports: Colonoscopy, EGD Other GI Surgeries/Procedures: slow colon that causes occasional constipation Male Surgical History: Reports: Lithotripsy (ES[facility]), Nephrectomy, Other (See Edi keith) Musculoskeletal Surgical History: Reports: ORIF Social & Family History - Family History Family Medical History: No Pertinent Family History Psychiatric: Reports: Anxiety - Tobacco Use Tobacco Use Status *Q: Never Tobacco User - Caffeine Use Caffeine Use: Reports: None - Recreational Drug Use Recreational Drug Use: No - Living Situation & Occupation Living situation: Reports: Single, with Significant Other (Girlfriend) Occupation: Employed ([employer]) ED ROS GENERAL - Review of Systems Review Of Systems: See Below Constitutional: Reports: No Symptoms HEENT: Reports: No Symptoms Respiratory: Reports: No Symptoms Cardiovascular: Reports: No Symptoms Endocrine: Reports: No Symptoms GI/Abdominal: Reports: No Symptoms : Reports: No Symptoms Musculoskeletal: Reports: Muscle Pain (soreness) Psychiatric: Reports: Anxiety - Physical Exam Exam: See Below Exam Limited By: No Limitations General Appearance: Alert, No Apparent Distress Ears: Normal External Exam Nose: Normal Inspection Head Exam: Atraumatic, Normocephalic Neck: Normal Inspection, Supple, Non-Tender Respiratory/Chest: No Respiratory Distress, Lungs Clear, Normal Breath Sounds Cardiovascular: Regular Rate, Rhythm, No Edema, No Murmur GI/Abdominal: Soft, Non-Tender, No Organomegaly, No Mass Neuro Exam (Abbreviated): Alert, Oriented, No Motor/Sensory Deficits Course - Vital Signs Last Recorded V/S: Last Vital Signs Temp 98.4 F 10/20/20 09:19 Pulse 119 H 10/20/20 09:19 Resp 13 10/20/20 09:19 BP 167/84 H 10/20/20 09:19 Pulse Ox 95 10/20/20 09:19 - Orders/Labs/Meds Orders: Active Orders 24 hr Category Date Time Status Cardiac Monitoring [RC] . DIRECTED Care 10/20/20 09:44 Active Peripheral IV Care [RC] . DIRECTED Care 10/20/20 09:45 Active Head wo Cont [CT] Stat Exams 10/20/20 09:45 Taken Sodium Chloride 0.9% [Saline Flush] Med 10/20/20 09:44 Active 10 ml FLUSH ASDIRECTED PRN Peripheral IV Insertion Adult [OM.PC] Stat Oth 10/20/20 09:44 Ordered Medication Orders Sodium Chloride (Sodium Chloride 0.9% 10 Ml Syringe) 10 ml FLUSH ASDIRECTED PRN PRN Reason: Keep Vein Open Last Admin: 10/20/20 10:00 Dose: 10 ml Documented by: KELVIN Labs: Laboratory Tests 10/20/20 10/20/20 Range/Units 09:50 09:50 WBC 9.29 H (4.23-9.07) K/mm3 RBC 5.78 (4.63-6.08) M/mm3 Hgb 15.0 (13.7-17.5) gm/dl Hct 45.0 (40.1-51.0) % MCV 77.9 L (79.0-92.2) fl MCH 26.0 (25.7-32.2) pg MCHC 33.3 (32.2-35.5) g/dl RDW Std Deviation 40.9 (35.1-43.9) fL Plt Count 274 (163-337) K/mm3 MPV 10.7 (9.4-12.3) fl Neut % (Auto) 69.5 H (34.0-67.9) % Lymph % (Auto) 19.8 L (21.8-53.1) % Kern % (Auto) 10.0 (5.3-12.2) % Eos % (Auto) 0 L (0.8-7.0) Baso % (Auto) 0.1 (0.1-1.2) % Neut # (Auto) 6.45 H (1.78-5.38) K/mm3 Lymph # (Auto) 1.84 (1.32-3.57) K/mm3 Kern # (Auto) 0.93 H (0.30-0.82) K/mm3 Eos # (Auto) 0.00 L (0.04-0.54) K/mm3 Baso # (Auto) 0.01 (0.01-0.08) K/mm3 Sodium 140 (136-145) mEq/L Potassium 3.3 L (3.5-5.1) mEq/L Chloride 102 (98-107) mEq/L Carbon Dioxide 25 (21-32) mEq/L Anion Gap 16.3 H (5-15) BUN 9 (7-18) mg/dL Creatinine 1.3 (0.7-1.3) mg/dL Est Cr Clr Drug Dosing 91.25 mL/min Estimated GFR (MDRD) > 60 (>60) mL/min BUN/Creatinine Ratio 6.9 L (14-18) Glucose 118 H (74-106) mg/dL Calcium 9.0 (8.5-10.1) mg/dL Magnesium 2.2 (1.8-2.4) mg/dl Total Bilirubin 0.4 (0.2-1.0) mg/dL AST 30 (15-37) U/L ALT 36 (16-63) U/L Alkaline Phosphatase 88 (46-116) U/L Total Protein 8.6 H (6.4-8.2) g/dl Albumin 4.2 (3.4-5.0) g/dl Globulin 4.4 gm/dL Albumin/Globulin Ratio 1.0 (1-2) Meds: Medications Generic Name Dose Route Start Last Admin Trade Name Freq PRN Reason Stop Dose Admin Sodium Chloride 10 ml 10/20/20 09:44 10/20/20 10:00 Sodium Chloride 0.9% 10 Ml Syringe FLUSH 10 ml ASDIRECTED PRN Administration Keep Vein Open Discontinued Medications Generic Name Dose Route Start Last Admin Trade Name Freq PRN Reason Stop Dose Admin Lorazepam 1 mg 10/20/20 09:45 10/20/20 09:59 Lorazepam 2 Mg/Ml Sdv IVPUSH 10/20/20 09:46 1 mg ONETIME ONE Administration - Re-Assessments/Exams Free Text/Narrative Re-Assessment/Exam: 10/20/20 10:40 I ordered an IV saline lock, ativan 1mg IV, labs and a CT of his head. 10/20/20 10:[address] of his head looks good. His WBC was slightly elevated at 9.29. His K was a little low at 3.3. His anion gap was elevated at 16.3. I feel he needs to be back on klonopin and he needs a referral to neurology. I will hold off putting him on an antiepileptic until he sees neurology. He should not drive for 3 months or until cleared by neurology. Departure - Departure Time of Disposition: 10:50 Disposition: Home, Self-Care 01 Condition: Good Clinical Impression: Seizure - Discharge Information *PRESCRIPTION DRUG MONITORING PROGRAM REVIEWED*: Not Applicable *COPY OF PRESCRIPTION DRUG MONITORING REPORT IN PATIENT MAR: Not Applicable Prescriptions: ClonazePAM [KlonoPIN] 0.5 mg PO BID #60 tab Referrals: PCP,None [Primary Care Provider] - Kamryn Alejandro PA-C [Physician Administrative Assistant] - 1 Week Forms: ED Department Discharge Additional Instructions: Take the klonopin 2 times per day. Follow up with Mikaela Alejandro this week. You will need to be referred to neurology. You cannot drive for 3 months or until cleared by neurology. Please return if you are worse. Try to get a good night sleep and avoid alcohol. Both lower your seizure threshold. Sepsis Event Note (ED) - Evaluation Sepsis Screening Result: No Definite Risk - Focused Exam Vital Signs: Vital Signs Temp Pulse Resp BP Pulse Ox 10/20/20 09:19 98.4 F 119 H 13 167/84 H 95 - My Orders Last 24 Hours: My Active Orders 10/20/20 09:44 Cardiac Monitoring [RC] . DIRECTED Sodium Chloride 0.9% [Saline Flush] 10 ml FLUSH ASDIRECTED PRN Peripheral IV Insertion Adult [OM.PC] Stat 10/20/20 09:45 Peripheral IV Care [RC] . DIRECTED Head wo Cont [CT] Stat - Assessment/Plan Last 24 Hours: My Active Orders 10/20/20 09:44 Cardiac Monitoring [RC] . DIRECTED Sodium Chloride 0.9% [Saline Flush] 10 ml FLUSH ASDIRECTED PRN Peripheral IV Insertion Adult [OM.PC] Stat 10/20/20 09:45 Peripheral IV Care [RC] . DIRECTED Head wo Cont [CT] Stat
[2020-10-20 11:07] VITALS: BP 126/68; PULSE 99
--- NOTE | 2020-10-21 11:27 | CT ---
Head CT Technique: Multiple axial sections through the brain were obtained. Intravenous contrast not utilized. Reconstructed coronal and sagittal images were obtained. Comparison: Prior head CT study of 04/18/18. Findings: Ventricles along with basal cisterns and sulci over the convexities are within normal limits for the patient's age. No abnormal parenchymal densities are seen. No evidence of intracranial hemorrhage. No midline shift or mass-effect is seen. Bone window settings were reviewed. Mild mucosal thickening is seen within the posterior right ethmoid sinuses. No acute paranasal sinus findings are seen. Visualized mastoid sinuses shows nothing acute. No acute calvarial abnormality is appreciated. Impression: 1. Minimal ethmoid sinus findings believed to be incidental. 2. No acute intracranial abnormality is appreciated. Diagnostic code #2 I agree with preliminary report from [facility] finalized on 10/20/20, 11:40 AM CDT
== END 2020-10-20 11:07 | disposition home or self-care (01) ==
LOC: JD.ED 09:03
DX: R56.9 Unspecified convulsions (principal); E66.9 Obesity, unspecified; Z68.30 Body mass index [BMI] 30.0-30.9, adult
CPT/HCPCS: 36415; 70450; 80053; 83735; 85025; 96374; 99284; J2060